=== PATIENT | female | born 1990 | race Caucasian/White ===

== ENCOUNTER → 2017-02-05 | Outpatient (CLI) | payer OTHER ==
[~2017-02-05] MED LIST: PRENTAB26 PO
[2017-02-05 10:02] LABS: CHOLESTEROL/HDL RATIO 3.4
== END | disposition home or self-care (01) ==
LOC: C.LAB 08:14
PROVIDERS: ATTEND Physician Assistant
DX: Z00.00 Encounter for general adult medical examination without abnormal findings (principal)

== ENCOUNTER → 2017-10-23 | Outpatient (CLI) | payer OTHER | END | disposition home or self-care (01) | LOC: C.PAPS 09:15 | PROVIDERS: ATTEND Obstetrics & Gynecology | DX: Z01.419 Encounter for gynecological examination (general) (routine) without abnormal findings (principal) ==

== ENCOUNTER → 2018-01-25 | Outpatient (CLI) | payer OTHER | END | disposition home or self-care (01) | LOC: C.LAB1850 08:10 | PROVIDERS: ATTEND Physician Assistant | DX: Z00.00 Encounter for general adult medical examination without abnormal findings (principal) ==

== ENCOUNTER 2020-09-10 23:40 | Inpatient (IN) ==
[2020-09-11] MEDS ORDERED: OXYTOCIN 30 UNITS/500 ML BAG IV PRN ×4 (00:36→08:49)
--- NOTE | 2020-09-11 00:44 | History & Physical Report ---
Date of Service September 11, 2020 Assessment & Plan (1) Spontaneous rupture of amniotic membranes: IUP at 39 weeks with gross rupture of amniotic fluid with mild contractions since then. will begin pitocin augmentation of labor epidural analgesia when requested anticipate vaginal . History of Present Illness Primary Care Provider: Bety Loera MD Patient is a 29 yo white female EDC 09/17/20 who presents at 39 weeks with SPROM for clear fluid at 2130. she has been having contractions intermittently for several days. they are a little stronger now since leaking fluid. has been complicated by GDM - diet controlled. GBS - negative, blood type - A positive. Allergies Allergy/AdvReac Type Severity Reaction Status Date / Time No Known Allergies Allergy Verified 09/11/20 00:06 Home Medications Medication Instructions Recorded Confirmed Type prenat.vits,rocio,[id number] 1 tab PO DAILY 01/30/20 09/11/20 History acetone (urine) test #50 ea 04/23/20 09/11/20 Rx blood sugar diagnostic #150 ea 04/23/20 09/11/20 Rx blood-glucose meter #1 ea 04/23/20 09/11/20 Rx lancets 33 gauge #150 ea 04/23/20 09/11/20 Rx pantoprazole 40 mg tablet,delayed 40 mg PO DAILY #90 tab 08/16/20 09/11/20 Rx release Patient History Medical History Abnormal biochemical finding on screening of mother Chicken pox Dysuria Encounter for anatomic survey Gestational diabetes Surgical History S/P wisdom tooth extraction Family History Father Hypertension Mother Dyslipidemia Multiple myeloma, Onset Age: 59 Daughter No problems noted. Denies family history of Ovarian cancer Osteoporosis Myocardial infarction Breast cancer Colorectal cancer Social History Smoking Status: Never smoker Hx Alcohol Use: No Hx Substance Use: No Preferred Language: [place] Communication Ability: Effective Visual Impairment: No Limitations Hearing Ability: Normal Beliefs That Will Affect Care: None marital status: marital status details: Nilton (29) [phone] Current Living Situation: Family Current Living Situation Comment: lives with spouse, and child, 1 dog, 2 cats, spouse to change litter current occupational status: employed current occupation: [employer] Feels Safe at Home: Yes Childhood Exposure to Second-Hand Smoke: No Dental Care, Regularly: Yes Physical Activity Frequency: 3-4 Times per Week Seatbelt Use: always Sunscreen Use: Yes Review of Systems All systems reviewed & are unremarkable except as noted in HPI & below Physical Exam Constitutional: WD/WN, vitals as above Respiratory: normal respiratory effort, lungs clear to auscultation Cardiovascular: RRR, no murmur, no edema Gastrointestinal (Abdomen): normal bowel sounds, soft, nontender, no hepatosplenomegaly Psychiatric: A+Ox3, euthymic affect Genitourinary: OB Exam Abdomen: + vertex, + estimated weight (8-9 pounds) and + irregular contractions Manual OB Exam: + cervical dilation 1 cm, + cervical effacement 60%, + station -1 and + amniotic fluid clear and nitrazine positive OB Exam Monitor Tracing: + external FHT monitor used, + external uterine monitor used, + category I and + normal FHT variability Results & Data ([facility]) Vital Signs (Past 12 Hours) Vital Signs Temp Pulse Resp BP 09/11/20 00:10 97.9 F 96 H 16 128/77 09/10/20 23:56 96 H 128/77 Coding Level of Care Code None Diagnoses Spontaneous rupture of amniotic membranes
[2020-09-11 00:57] LABS: Hematocrit (blood only) 37.5 % (37-47); Hemoglobin 12.8 g/dL (12.0-16.0); Mean Corpuscular Hemoglobin 30.5 pg (25-34); Mean Corpuscular Hgb Conc 34.1 g/dL (32-36); Mean Corpuscular Volume 89.5 fL (80-100); Mean Platelet Volume 10.2 fL (7.4-10.4); Platelet Count 220 K/uL (130-400); RDW Coefficient of Variation 13.6 % (11.5-14.5); Red Blood Count 4.19 M/uL (4.2-5.4); White Blood Count 12.07 K/uL (4.8-10.8)
[2020-09-11] MEDS: LACTATED RINGER'S 1,000 ML IV PRN ×2 (01:15→05:15)
[2020-09-11] MEDS ORDERED: ePHEDrine sulfate 50 MG/ML AMP ONE (05:10)
[2020-09-11] MEDS ORDERED: BUPIVACAINE 0.25% 30 ML VIAL ONE (05:10)
[2020-09-11] MEDS ORDERED: SODIUM CHLORIDE 0.9% INJ 10 ML VIAL ONE (05:10)
[2020-09-11] MEDS ORDERED: fentaNYL citrate 100 MCG/2 ML VIAL ONE (05:10)
[2020-09-11] MEDS ORDERED: fentaNYL 2MCG/ML ROPIVACAINE 1.25MG/ML 100 ML BAG EPI ONE (05:11)
[2020-09-11] MEDS ORDERED: NALOXONE HCL 0.4 MG/1 ML VIAL/CARP IV PRN (05:17)
[2020-09-11] MEDS ORDERED: diphenhydrAMINE 50 MG/ML VIAL IV PRN (05:17)
[2020-09-11] MEDS ORDERED: NALOXONE HCL 1 MG in SODIUM CHLORIDE 0.9% 1000ML 1,000 ML IV PRN (05:17)
[2020-09-11] MEDS ORDERED: fentaNYL 2MCG/ML ROPIVACAINE 1.25MG/ML 100 ML BAG EPI PRN (05:17)
[2020-09-11] MEDS ORDERED: ePHEDrine sulfate 50 MG/ML AMP IV PRN (05:17)
[2020-09-11] MEDS ORDERED: ONDANSETRON INJ 2 MG/ML 2 ML VIAL IV PRN (05:17)
--- NOTE | 2020-09-11 05:19 | Anesthesiology Consultation ---
Date of Service September 11, 2020 Assessment & Plan (1) Encounter for pre-operative examination: Chart Review Chart Review: Patient NOT seen in Pre Admission Testing and Acceptable Risk for Labor Epidural Consults Requested none History Height/Weight Weight: 80.385 kg Allergies Allergy/AdvReac Type Severity Reaction Status Date / Time No Known Allergies Allergy Verified 09/11/20 00:06 Medications Home Medications Medication Instructions Recorded Confirmed Last Taken prenat.vits,rocio,zrf-[id number] 1 tab PO DAILY 01/30/20 09/11/20 09/09/20 21:00 acetone (urine) test #50 ea 04/23/20 09/11/20 Unknown blood sugar diagnostic #150 ea 04/23/20 09/11/20 Unknown blood-glucose meter #1 ea 04/23/20 09/11/20 Unknown lancets 33 gauge #150 ea 04/23/20 09/11/20 Unknown pantoprazole 40 mg tablet,delayed 40 mg PO DAILY #90 tab 08/16/20 09/11/20 09/10/20 08:00 release Active Medications Generic Name Dose Route Start Last Admin Trade Name Freq PRN Reason Stop Dose Admin Oxytocin 30 units in 500 mls @ 7 mls/hr 09/11/20 00:38 09/11/20 05:00 Pitocin IV 09/13/20 00:37 0.42 units/hr .Q24H PRN 7 mls/hr Labor Induction/Augmentation Titration Protocol 0.42 UNITS/HR Lactated Ringer's 1,000 mls @ 125 mls/hr 09/11/20 00:36 09/11/20 05:15 Lr IV 09/13/20 00:35 125 mls/hr .Q8H PRN Administration L&D Protocol Protocol Past Medical History Medical History Abnormal biochemical finding on screening of mother Chicken pox Dysuria Encounter for anatomic survey Gestational diabetes Exercise / Class Metabolic Activity II 4-5 Yardwork/Stairs/Walk up hill Past Family History Family History Father Hypertension Mother Dyslipidemia Multiple myeloma, Onset Age: 59 Daughter No problems noted. Denies family history of Ovarian cancer Osteoporosis Myocardial infarction Breast cancer Colorectal cancer Past Surgical History Surgical History S/P wisdom tooth extraction Past Anesthesia History No Hx of Anesthesia Complications and No Family Hx of Anesthesia Complications History of PONV No Hx of PONV and No Hx of Motion Sickness Social History Smoking Status: Never smoker Do You Dip or Chew Tobacco: No Hx Alcohol Use: No Hx Substance Use: No substance use type: does not use Physical Exam Vital Signs Last Vital Signs Temp 36.6 C 09/11/20 04:51 Pulse 86 09/11/20 05:32 Resp 18 09/11/20 04:51 BP 125/81 09/11/20 05:31 Pulse Ox 94 09/11/20 05:32 Testing Laboratory Results 09/11/20 00:47 09/11/20 00:46 POC Glucose 95
[2020-09-11] MEDS ORDERED: oxyCODONE/ACETAMINOPHEN 5mg/325mg TAB PO PRN (08:49)
[2020-09-11] MEDS ORDERED: ACETAMINOPHEN 325 MG TAB PO PRN (08:49)
[2020-09-11] MEDS ORDERED: SUPERCREAM 0.870% 15 GM JAR EXT PRN (08:49)
[2020-09-11] MEDS ORDERED: bisacodyL 10 MG SUPP PR PRN (08:49)
[2020-09-11] MEDS ORDERED: BENZOCAINE 20% AER SPR 82.5 GM CAN EXT PRN (08:49)
[2020-09-11] MEDS ORDERED: HYDROCORTISONE ACETATE 25 MG SUPP PR PRN (08:49)
--- NOTE | 2020-09-11 08:56 | Delivery Summary ---
Vaginal Delivery Summary Date of Service September 11, 2020 Patient is a 29-year-old 3 para 1011 white female who presents with spontaneous rupture of membranes. She received Pitocin augmentation of labor because her contractions were irregular after 3 hours of observation. She received effective epidural analgesia. She progressed to full dilation, and pushed effectively through 1 contraction for delivery of a viable female infant. After the head was delivered the posterior arm was presented and was delivered next. The rest of the infant delivered easily and was placed on the mother's abdomen for further attention and drying. The infant was vigorous and moving all 4 limbs. The placenta was expressed intact with a three-vessel cord. A superficial laceration vaginally was not bleeding and therefore not repaired. Estimated blood loss was 200 cc. bleeding was controlled with dilute Pitocin. Mother and infant were doing well after delivery. Vaginal Delivery Summary [facility] Vaginal Delivery Charge Vaginal Delivery Codes: 01400 global code for the antepartum, delivery, and post- Delivery Type Details: [facility]
--- NOTE | 2020-09-11 09:38 | Anesthesiology Progress Note ---
Date of Service September 11, 2020 Anesthesia Post Procedure Vital Signs Vital Signs: Temp Pulse Resp BP Pulse Ox 09/11/20 09:28 97 H 118/63 09/11/20 09:13 97 H 114/58 L 09/11/20 09:12 102 H 93 09/11/20 09:07 86 94 09/11/20 09:02 91 H 93 09/11/20 08:58 93 H 119/60 09/11/20 08:57 91 H 93 09/11/20 08:52 100 H 93 09/11/20 08:48 104 H 93 09/11/20 08:47 101 H 95 09/11/20 08:43 99 H 126/77 09/11/20 08:42 102 H 94 09/11/20 08:37 108 H 94 09/11/20 08:35 110 H 94 09/11/20 08:32 117 H 98 09/11/20 08:29 104 H 130/82 09/11/20 08:27 105 H 96 09/11/20 08:22 105 H 94 09/11/20 08:17 100 H 94 09/11/20 08:15 98 H 94 09/11/20 08:14 90 115/74 09/11/20 08:12 96 H 94 09/11/20 08:09 93 H 94 09/11/20 08:07 97 H 94 09/11/20 08:04 95 H 94 09/11/20 08:02 93 H 93 09/11/20 08:00 93 H 115/77 09/11/20 07:57 90 94 09/11/20 07:56 93 H 94 09/11/20 07:52 89 94 09/11/20 07:49 90 94 09/11/20 07:47 84 95 09/11/20 07:43 88 112/68 94 09/11/20 07:42 84 95 09/11/20 07:37 86 95 09/11/20 07:32 98 H 95 09/11/20 07:28 83 119/75 09/11/20 07:27 91 H 94 09/11/20 07:22 83 94 09/11/20 07:19 89 94 09/11/20 07:17 92 H 95 09/11/20 07:14 36.7 C 94 H 18 121/78 09/11/20 07:12 86 96 09/11/20 07:10 86 94 09/11/20 07:07 95 H 97 09/11/20 07:04 98 H 94 09/11/20 07:02 95 H 96 09/11/20 06:59 85 126/76 09/11/20 06:57 92 H 94 09/11/20 06:53 97 H 94 09/11/20 06:52 88 95 09/11/20 06:48 95 H 94 09/11/20 06:47 96 H 95 09/11/20 06:44 85 119/76 09/11/20 06:42 86 95 09/11/20 06:37 83 93 09/11/20 06:36 88 94 09/11/20 06:32 95 H 94 09/11/20 06:30 89 94 09/11/20 06:29 85 122/77 09/11/20 06:27 97 H 94 09/11/20 06:25 91 H 94 09/11/20 06:22 96 H 95 09/11/20 06:19 89 94 09/11/20 06:17 88 96 09/11/20 06:14 88 93 09/11/20 06:13 82 112/66 09/11/20 06:12 84 94 09/11/20 06:10 36.6 C 18 09/11/20 06:07 89 103/69 95 09/11/20 06:03 83 106/59 L 09/11/20 06:02 86 93 09/11/20 06:01 84 94 09/11/20 05:57 81 107/63 93 09/11/20 05:55 81 94 09/11/20 05:52 96 H 110/75 92 09/11/20 05:48 91 H 120/82 09/11/20 05:47 87 121/83 94 09/11/20 05:42 93 H 118/74 92 09/11/20 05:38 93 H 122/76 09/11/20 05:37 93 H 92 09/11/20 05:34 92 H 94 09/11/20 05:32 86 94 09/11/20 05:31 84 125/81 09/11/20 05:29 89 94 09/11/20 05:27 88 93 09/11/20 05:22 91 H 93 09/11/20 04:51 36.6 C 86 18 116/75 09/11/20 03:31 81 124/62 09/11/20 03:30 36.7 C 16 09/11/20 02:06 87 109/70 09/11/20 02:00 36.7 C 18 09/11/20 00:10 36.6 C 96 H 16 128/77 09/10/20 23:56 96 H 128/77 Pain Intensity Lower Abdomen: Pain Intensity: 0 Transfer of Care Handoff Completed per policy Notes Mental Status: alert / awake / arousable and participated in evaluation Patient Amnestic to Procedure: Yes Nausea / Vomiting: adequately controlled Pain: adequately controlled Airway Patency, RR, SpO2: stable & adequate BP & HR: stable & adequate Hydration State: stable & adequate Anesthetic Complications: no major complications apparent and Pt Satisfied with anesthetic care
[2020-09-11] MEDS: PANTOprazole 40 MG TAB PO SCH (13:01)
[2020-09-11] MEDS: IBUPROFEN 600 MG TAB PO PRN ×2 (18:57→22:59)
[2020-09-11] MEDS: DOCUSATE SODIUM 100 MG CAP PO SCH (20:52)
[2020-09-12] MEDS: IBUPROFEN 600 MG TAB PO PRN ×2 (05:27→10:35)
[2020-09-12 07:01] LABS: Hematocrit (blood only) 37.6 % (37-47); Mean Corpuscular Hgb Conc 34.6 g/dL (32-36); Mean Corpuscular Volume 89.7 fL (80-100); Mean Platelet Volume 10.2 fL (7.4-10.4); Platelet Count 209 K/uL (130-400); RDW Coefficient of Variation 13.8 % (11.5-14.5); RDW Standard Deviation 45.1 fL (36.4-46.3); Red Blood Count 4.19 M/uL (4.2-5.4); White Blood Count 13.92 K/uL (4.8-10.8)
[2020-09-12] MEDS ORDERED: PRENATAL VITAMIN 1 TAB PO SCH (08:00)
[2020-09-12] MEDS ORDERED: DIPHTHERIA/TETANUS/PERTUSSIS 0.5 ML SYR/VIAL IM ONE (09:00)
--- NOTE | 2020-09-12 09:18 | Obstetrical Progress Note ---
Date of Service September 12, 2020 Assessment & Plan (1) Encounter for supervision of normal in multigravida, antepartum: PPD#1 doing well, would like to go home. instructions reviewed. Followup PP 6w. Subjective Ambulation: ambulating normally Voiding: no voiding problems Diet Tolerance:: regular diet Lochia:: Moderate Feeding Type:: breast feeding PPD#1 doing well. Desires discharge home. Review of Systems All systems reviewed & are unremarkable except as noted in HPI & below Physical Exam Constitutional WD/WN, vitals as above no acute distress Respiratory normal respiratory effort Cardiovascular Rate/Rhythm: regular rate and regular rhythm Gastrointestinal (Abdomen) Inspection/Auscultation: abdomen normal to inspection; abdomen not distended Percussion/Palpation: abdomen soft Genitourinary OB Exam Abdomen: + fundal height Fundus: + firm; not tender Results & Data ([facility]) Vital Signs (Past 12 Hours) Vital Signs Temp Pulse Resp BP 09/12/20 07:34 36.5 C 84 20 106/74 09/12/20 03:00 36.5 C 74 16 106/72 09/11/20 23:00 36.5 C 81 16 103/72
[2020-09-12] MEDS: PANTOprazole 40 MG TAB PO SCH (10:35)
[2020-09-12] MEDS: DOCUSATE SODIUM 100 MG CAP PO SCH (10:36)
[2020-09-12] MEDS ORDERED: bisacodyL 5 MG TABEC PO SCH (20:00)
== END 2020-09-12 15:05 | disposition home or self-care (01) | DRG 807 ==
LOC: OPB 23:40 → 4S1 23:42 → 4S2 09-11 14:12

== ENCOUNTER 2022-08-18 01:26 | Inpatient (IN) ==
--- NOTE | 2022-08-18 02:17 | Emergency Department Note ---
Impression & Plan Suicide attempt by hanging, Hypokalemia, UTI (urinary tract infection) The case was signed out to Dr. Schmitt for disposition ED Provider Note NAME: MARIANGEL ORTIZ AGE: 31 SEX: F ARRIVES VIA: Walk-In INFORMANT: Patient and friend ED PROVIDER(S): Megan Granados DO CHIEF COMPLAINT: Suicide attempt PLAN: Disposition: The case will be signed out at change of shift Condition: Good MEDICAL DECISION MAKING: This is a 31-year-old female patient who presents to the emergency department after a suicide attempt. Patient made an attempt at her life 5 days ago by hanging. She disclosed this information to a friend torey who brought her here for evaluation. The patient was medically cleared here in the emergency department. She is willing to admit herself voluntarily for inpatient psychiatric care. Patient was noted to have a slightly low potassium which was replaced with oral potassium chloride. She was also noted to have a urinary tract infection on urinalysis. The patient does admit to frequent urination. Triage Nursing notes reviewed and agree with them. Additional history obtained from the patient's friend who is at the bedside Vital Signs: reviewed and unremarkable Differential diagnosis: Mood disorder, thought disorder, drug abuse, attempted suicide, neck injury ER treatment provided: Oral potassium chloride Oral Macrobid Diagnostics interpreted by me: Laboratory studies: See below HPI: 31/F arrives for evaluation of suicide attempt. The patient presents to the emergency department with her friend this evening stating that she has t houghts of suicide and attempted to hang herself 5 days ago in a hotel. The patient is going through divorce and feels extremely depressed. She had an increased dose to her sertraline and recently started taking Adderall. She used a chairman of the board cord to try to hang herself while staying in a hotel 5 days ago. She disclosed this to her friend torey. PAST MEDICAL HISTORY:GERD; depression PAST SURGICAL HISTORY:See Below FAMILY HISTORY:Bipolar disorder SOCIAL HISTORY:She works at the [employer]; she has 2 children and is going through a divorce at this time. She denies drug or alcohol use. HOME MEDICATIONS:See list ALLERGIES:None VITALS:See Below PHYSICAL EXAMINATION: HEENT: Head - normocephalic and atraumatic. Pupils are equal, round, and reactive to light. Extraocular eye muscles are intact, and sclera are anicteric. Nose - moist nasal mucosa without discharge. Mouth - moist buccal mucosa. Oropharynx is nonerythematous and there is no tonsillar exudate or edema noted. Neck: Supple; the patient has old bruising in a linear pattern on both sides of her neck Heart: Regular rate and rhythm. There is a normal S1 and S2 with no murmurs, c licks, or gallops appreciated. Lungs: Clear to auscultation bilaterally with no wheezes, rales, or rhonchi. Abdomen: Soft, completely nontender, nondistended, with good bowel sounds. There are no palpable pulsatile masses or hepatosplenomegaly. There is no guarding, rigidity, or rebound noted. Extremities: No evidence of cyanosis, clubbing, or edema. There are easily palpable peripheral pulses. Skin: warm and dry with good turgor and no rashes. Psych: The patient has a normal affect. She does appear slightly depressed. She admits to thoughts of suicide and a recent attempt by hanging ED COURSE: Times/Reassessments: 155: The patient was evaluated in room A-8. A complete history and physical was performed. Laboratory studies were drawn as above. The patient was evaluated by the ED psychiatric manager of case management. Patient was given an oral dose of potassium chloride for her hypokalemia. She was given an oral dose of Macrobid for signs of urinary tract infection on urinalysis. Referral has been made to 3 S. We are awaiting bed placement. The case has been signed out to Dr. Schmitt at change of shift. Megan Granados DO Past Med/Surg History Medical History (Updated 08/18/22 @ 07:53 by Megan Granados DO) Abnormal biochemical finding on screening of mother ADHD (attention deficit hyperactivity disorder), inattentive type Chicken pox Diet controlled gestational diabetes mellitus (GDM), antepartum Surgical History S/P wisdom tooth extraction Family History Father Hypertension Guillain-Jackson Mother Dyslipidemia Multiple myeloma, Onset Age: 59 Daughter No problems noted. Daughter Hip dysplasia Denies family history of Ovarian cancer Osteoporosis Myocardial infarction Breast cancer Colorectal cancer Social History (Updated 05/24/22 @ 18:27 by GREG Morris) Smoking Status: Never smoker Second Hand Exposure: No; Hx Alcohol Use: No Hx Substance Use: No Preferred Language: [place] Communication Ability: Effective Visual Impairment: No Limitations Hearing Ability: Normal Certified Scrub Tech Required: No Beliefs That Will Affect Care: None marital status: marital status details: Nilton (30) [phone] Current Living Situation: Family Current Living Situation Comment: lives with spouse, and child, 1 dog, 2 cats, spouse to change litter current occupational status: employed current occupation: [employer] How many Children do You have: 2 Feels Safe at Home: Yes Childhood Exposure to Second-Hand Smoke: No Diet Comment: regular caffeine: Yes during the past year weight has: remained stable Dental Care, Regularly: Yes Physical Activity Frequency: 3-4 Times per Week Seatbelt Use: always Sunscreen Use: Yes Gender Identity: Female Assistive Devices: Contacts and Glasses Allergies Allergies Allergy/AdvReac Type Severity Reaction Status Date / Time No Known Allergies Allergy Verified 06/21/22 12:41 Home Meds Home Medications Medication Instructions Recorded Confirmed ondansetron 4 mg disintegrating 4 mg PO Q8H PRN NAUSEA/VOMITING 10/12/21 08/18/22 tablet Previous Rx's Medication Instructions Recorded pantoprazole 40 mg tablet,delayed 40 mg PO DAILY #90 tabs 05/26/22 release sertraline 100 mg tablet 100 mg PO DAILY #90 tabs 07/26/22 dextroamphetamine-amphetamine ER 30 mg PO DAILY #30 caps 08/16/22 30 mg 24hr capsule,extend release (Adderall XR) Results & Data (ED) Vital Signs Vital Signs - 24 hr 08/18/22 01:28 08/18/22 01:59 08/18/22 07:27 Temperature 36.3 C L 36.9 C Temperature Source Temporal Artery Scan Oral Pulse Rate 94 H Pulse Rate [Right Finger] 103 H Respiratory Rate 18 18 Respiratory Effort / Characteristics Non-Labored Spontaneous Non-Labored Respiratory Depth Normal Normal Normal Blood Pressure 121/72 Blood Pressure [Right Arm] 124/78 Blood Pressure Mean 88 Blood Pressure Mean [Right Arm] 93 Blood Pressure Position [Right Arm] Sitting Pulse Oximetry 100 98 Oxygen Delivery Method Room Air Room Air Sepsis Recent Fever Within 48 Hours No Sepsis New/Unexplained Change in Mental Status No Sepsis Action Taken by Nursing No Action Required Laboratory Data 08/18/22 01:35 08/18/22 01:35 Lab Results 08/18/22 08/18/22 08/18/22 Range/Units 01:35 01:35 01:35 WBC 10.62 (4.8-10.8) K/ul RBC 5.20 (4.20-5.40) M/uL Hgb 15.6 (12.0-16.0) g/dl Hct 46.2 (37.0-47.0) % MCV 88.8 (80.0-100.0) fL MCH 30.0 (25.0-34.0) pg MCHC 33.8 (32.0-36.0) g/dL RDW Std Deviation 39.1 (36.4-46.3) fL RDW Coeff of Bogdan 12.1 (11.5-14.5) % Plt Count 369 (130-400) K/uL MPV 9.7 (9.4-12.4) fL Immature Gran % (Auto) 0.3 % Neut % (Auto) 50.9 % Lymph % (Auto) 40.2 % Martin % (Auto) 6.2 % Eos % (Auto) 2.1 % Baso % (Auto) 0.3 % Neut # (Auto) 5.41 (1.40-6.50) K/uL Lymph # (Auto) 4.27 H (1.2-3.4) K/uL Martin # (Auto) 0.66 H (0.11-0.59) K/uL Eos # (Auto) 0.22 (0-0.50) K/uL Baso # (Auto) 0.03 (0-0.2) K/uL Immature Gran # (Auto) 0.03 (0.01-0.20) K/uL Sodium 140 (136-145) mmol/L Potassium 3.2 L (3.5-5.1) mmol/L Chloride 103 (98-107) mmol/L Carbon Dioxide 30 (21-32) mmol/L Anion Gap 7 (3-11) BUN 10 (6-23) mg/dl Creatinine 0.66 (0.6-1.2) mg/dl Est Cr Clr Drug Dosing 103.1 ml/min Est GFR ( Amer) 137.4 ml/min Est GFR (Non-Af Amer) 118.5 ml/min BUN/Creatinine Ratio 15.2 (10-20) Glucose 75 (70-99(Fasting)) mg/dl Calcium 9.8 (8.5-10.1) mg/dl Total Bilirubin 0.8 (0.2-1.0) mg/dl AST 17 (13-39) U/L ALT 14 (7-52) U/L Alkaline Phosphatase 68 (34-104) U/L Total Protein 8.1 (6.0-8.3) gm/dl Albumin 5.0 (3.4-5.0) gm/dl Globulin 3.1 (2.5-4.0) gm/dl Albumin/Globulin Ratio 1.6 (0.9-2) TSH (0.300-4.500) uIu/ml Urine Color Urine Appearance (Clear) Urine pH (4.5-7.5) Ur Specific Brackney (1.000-1.030) Urine Protein (Negative) Urine Glucose (UA) (Negative) Urine Ketones (Negative) Urine Blood (Negative) Urine Nitrite (Negative) Urine Bilirubin (Negative) Urine Urobilinogen (Negative) Ur Leukocyte Esterase (Negative) Urine WBC (Auto) (0-5) /hpf Urine RBC (Auto) (0-4) /hpf U Hyaline Cast (Auto) (0-5) /lpf U Epithel Cells (Auto) (0-5) /lpf Urine Bacteria (Auto) (Negative) POC Ur Test NEG (NEG) Salicylates (3.0-30) mg/dl Urine Opiates Screen (Neg) Ur Methadone, Qual (Neg) Acetaminophen (10-30) ug/ml Urine Barbiturates (Neg) Ur Phencyclidine (PCP) (Neg) U Amphetamin/Meth Scrn (Neg) MDMA (Ecstasy) Screen (Neg) U Benzodiazepines Scrn (Neg) Ur Cocaine Metabolite (Neg) U Marijuana (THC) Screen (Neg) Ethyl Alcohol mg/dL (<10.0) mg/dl SARS-CoV-2, RNA, NAAT (NEGATIVE) 08/18/22 08/18/22 08/18/22 Range/Units 01:35 01:35 01:35 WBC (4.8-10.8) K/ul RBC (4.20-5.40) M/uL Hgb (12.0-16.0) g/dl Hct (37.0-47.0) % MCV (80.0-100.0) fL MCH (25.0-34.0) pg MCHC (32.0-36.0) g/dL RDW Std Deviation (36.4-46.3) fL RDW Coeff of Bogdan (11.5-14.5) % Plt Count (130-400) K/uL MPV (9.4-12.4) fL Immature Gran % (Auto) % Neut % (Auto) % Lymph % (Auto) % Martin % (Auto) % Eos % (Auto) % Baso % (Auto) % Neut # (Auto) (1.40-6.50) K/uL Lymph # (Auto) (1.2-3.4) K/uL Martin # (Auto) (0.11-0.59) K/uL Eos # (Auto) (0-0.50) K/uL Baso # (Auto) (0-0.2) K/uL Immature Gran # (Auto) (0.01-0.20) K/uL Sodium (136-145) mmol/L Potassium (3.5-5.1) mmol/L Chloride (98-107) mmol/L Carbon Dioxide (21-32) mmol/L Anion Gap (3-11) BUN (6-23) mg/dl Creatinine (0.6-1.2) mg/dl Est Cr Clr Drug Dosing ml/min Est GFR ( Amer) ml/min Est GFR (Non-Af Amer) ml/min BUN/Creatinine Ratio (10-20) Glucose (70-99(Fasting)) mg/dl Calcium (8.5-10.1) mg/dl Total Bilirubin (0.2-1.0) mg/dl AST (13-39) U/L ALT (7-52) U/L Alkaline Phosphatase (34-104) U/L Total Protein (6.0-8.3) gm/dl Albumin (3.4-5.0) gm/dl Globulin (2.5-4.0) gm/dl Albumin/Globulin Ratio (0.9-2) TSH 1.680 (0.300-4.500) uIu/ml Urine Color Urine Appearance (Clear) Urine pH (4.5-7.5) Ur Specific Brackney (1.000-1.030) Urine Protein (Negative) Urine Glucose (UA) (Negative) Urine Ketones (Negative) Urine Blood (Negative) Urine Nitrite (Negative) Urine Bilirubin (Negative) Urine Urobilinogen (Negative) Ur Leukocyte Esterase (Negative) Urine WBC (Auto) (0-5) /hpf Urine RBC (Auto) (0-4) /hpf U Hyaline Cast (Auto) (0-5) /lpf U Epithel Cells (Auto) (0-5) /lpf Urine Bacteria (Auto) (Negative) POC Ur Test (NEG) Salicylates < 3.0 L (3.0-30) mg/dl Urine Opiates Screen (Neg) Ur Methadone, Qual (Neg) Acetaminophen < 3 L (10-30) ug/ml Urine Barbiturates (Neg) Ur Phencyclidine (PCP) (Neg) U Amphetamin/Meth Scrn (Neg) MDMA (Ecstasy) Screen (Neg) U Benzodiazepines Scrn (Neg) Ur Cocaine Metabolite (Neg) U Marijuana (THC) Screen (Neg) Ethyl Alcohol mg/dL < 10.0 (<10.0) mg/dl SARS-CoV-2, RNA, NAAT (NEGATIVE) 08/18/22 08/18/22 08/18/22 Range/Units 01:35 01:35 01:35 WBC (4.8-10.8) K/ul RBC (4.20-5.40) M/uL Hgb (12.0-16.0) g/dl Hct (37.0-47.0) % MCV (80.0-100.0) fL MCH (25.0-34.0) pg MCHC (32.0-36.0) g/dL RDW Std Deviation (36.4-46.3) fL RDW Coeff of Bogdan (11.5-14.5) % Plt Count (130-400) K/uL MPV (9.4-12.4) fL Immature Gran % (Auto) % Neut % (Auto) % Lymph % (Auto) % Martin % (Auto) % Eos % (Auto) % Baso % (Auto) % Neut # (Auto) (1.40-6.50) K/uL Lymph # (Auto) (1.2-3.4) K/uL Martin # (Auto) (0.11-0.59) K/uL Eos # (Auto) (0-0.50) K/uL Baso # (Auto) (0-0.2) K/uL Immature Gran # (Auto) (0.01-0.20) K/uL Sodium (136-145) mmol/L Potassium (3.5-5.1) mmol/L Chloride (98-107) mmol/L Carbon Dioxide (21-32) mmol/L Anion Gap (3-11) BUN (6-23) mg/dl Creatinine (0.6-1.2) mg/dl Est Cr Clr Drug Dosing ml/min Est GFR ( Amer) ml/min Est GFR (Non-Af Amer) ml/min BUN/Creatinine Ratio (10-20) Glucose (70-99(Fasting)) mg/dl Calcium (8.5-10.1) mg/dl Total Bilirubin (0.2-1.0) mg/dl AST (13-39) U/L ALT (7-52) U/L Alkaline Phosphatase (34-104) U/L Total Protein (6.0-8.3) gm/dl Albumin (3.4-5.0) gm/dl Globulin (2.5-4.0) gm/dl Albumin/Globulin Ratio (0.9-2) TSH (0.300-4.500) uIu/ml Urine Color Yellow Urine Appearance Cloudy A (Clear) Urine pH 5.5 (4.5-7.5) Ur Specific Brackney 1.022 (1.000-1.030) Urine Protein Negative (Negative) Urine Glucose (UA) Negative (Negative) Urine Ketones Negative (Negative) Urine Blood 2+ H (Negative) Urine Nitrite Negative (Negative) Urine Bilirubin Negative (Negative) Urine Urobilinogen Negative (Negative) Ur Leukocyte Esterase 1+ H (Negative) Urine WBC (Auto) 5-10 H (0-5) /hpf Urine RBC (Auto) 0-4 (0-4) /hpf U Hyaline Cast (Auto) 1-5 (0-5) /lpf U Epithel Cells (Auto) >30 H (0-5) /lpf Urine Bacteria (Auto) 3+ H (Negative) POC Ur Test (NEG) Salicylates (3.0-30) mg/dl Urine Opiates Screen Neg (Neg) Ur Methadone, Qual Neg (Neg) Acetaminophen (10-30) ug/ml Urine Barbiturates Neg (Neg) Ur Phencyclidine (PCP) Neg (Neg) U Amphetamin/Meth Scrn Pos H (Neg) MDMA (Ecstasy) Screen Neg (Neg) U Benzodiazepines Scrn Neg (Neg) Ur Cocaine Metabolite Neg (Neg) U Marijuana (THC) Screen Neg (Neg) Ethyl Alcohol mg/dL (<10.0) mg/dl SARS-CoV-2, RNA, NAAT NEGATIVE (NEGATIVE) Administered Medications Discontinued Medications Nitrofurantoin Macrocrystals (Nitrofurantoin Monohydrate 100 Mg Cap) 100 mg PO NOW STA Stop: 08/18/22 03:23 Last Admin: 08/18/22 03:28 Dose: 100 mg Documented By: BERNARDO Potassium Chloride (Potassium Chloride Crtab 20 Meq Tabcr) 40 meq PO NOW STA Stop: 08/18/22 03:19 Last Admin: 08/18/22 03:28 Dose: 40 meq Documented By: BERNARDO Discharge Plan Visit Data Chief Complaint: Mental Health Evaluation Stated Complaint: SI,DEPRESSION ED Provider: Markus Schmitt Discharge Problem: Suicide attempt by hanging, Hypokalemia, UTI (urinary tract infection) Forms Stand Alone Forms: [facility], Suicide Prevention Resources Prescriptions Prescriptions: No Action pantoprazole 40 mg tablet,delayed release (DR/EC) 40 mg PO DAILY Qty: 90 1RF Rx Instructions: take 1 tablet by mouth sertraline 100 mg tablet 100 mg PO DAILY Qty: 90 1RF dextroamphetamine-amphetamine [Adderall XR] 30 mg capsule,extended release 24hr 30 mg PO DAILY Qty: 30 0RF ondansetron 4 mg tablet,disintegrating 4 mg PO Q8H PRN (Reason: NAUSEA/VOMITING) Referrals Referrals: Bety Loera MD [Primary Care Provider] -
[2022-08-18 02:19] LABS: Basophils # (auto) 0.03 K/uL (0-0.2); Basophils % (auto) 0.3 %; Eosinophils # (auto) 0.22 K/uL (0-0.50); Eosinophils % (auto) 2.1 %; Hematocrit (blood only) 46.2 % (37.0-47.0); Hemoglobin 15.6 g/dl (12.0-16.0); Immature Granulocytes # (auto) 0.03 K/uL (0.01-0.20); Immature Granulocytes % (auto) 0.3 %; Lymphocytes # (auto) 4.27 K/uL (1.2-3.4); Lymphocytes % (auto) 40.2 %; Mean Corpuscular Hgb Conc 33.8 g/dL (32.0-36.0); Mean Corpuscular Volume 88.8 fL (80.0-100.0); Mean Platelet Volume 9.7 fL (9.4-12.4); Monocytes # (auto) 0.66 K/uL (0.11-0.59); Monocytes % (auto) 6.2 %; Neutrophils # (auto) 5.41 K/uL (1.40-6.50); Neutrophils % (auto) 50.9 %; Platelet Count 369 K/uL (130-400); RDW Coefficient of Variation 12.1 % (11.5-14.5); RDW Standard Deviation 39.1 fL (36.4-46.3); White Blood Count 10.62 K/ul (4.8-10.8)
[2022-08-18 02:25] LABS: Appearance Urine Cloudy (Clear); Bacteria Urine Automated 3+ (Negative); Bilirubin Urine Negative (Negative); Blood Urine 2+ (Negative); Color Urine Yellow; Epithelial Cell Urine Auto >30 /lpf (0-5); Glucose Urine UA Negative (Negative); Ketones Urine Negative (Negative); Leukocyte Esterase Urine 1+ (Negative); Nitrite Urine Negative (Negative); Protein Urine Negative (Negative); Specific Gravity Urine 1.022 (1.000-1.030); Urobilinogen Urine Negative (Negative); pH Urine 5.5 (4.5-7.5)
[2022-08-18 02:32] LABS: Albumin Globulin Ratio 1.6 (0.9-2); BUN Creatinine Ratio 15.2 (10-20); Bilirubin,Total 0.8 mg/dl (0.2-1.0); Calcium 9.8 mg/dl (8.5-10.1); Creatinine Clr Calc Pharmacy 103.1 ml/min; Est GFR (African American) 137.4 ml/min; Est GFR (Non-African American) 118.5 ml/min; Globulin 3.1 gm/dl (2.5-4.0); Potassium 3.2 mmol/L (3.5-5.1); Total Protein 8.1 gm/dl (6.0-8.3)
[2022-08-18 02:41] LABS: Acetaminophen < 3 ug/ml (10-30); Salicylate < 3.0 mg/dl (3.0-30)
[2022-08-18 02:42] LABS: RBC Urine Automated 0-4 /hpf (0-4)
[2022-08-18 03:05] LABS: Amphetamines+Metham, Urine Pos (Neg); Barbiturates, Urine Neg (Neg); Benzodiazepine, Urine Neg (Neg); Cocaine, Urine Neg (Neg); MDMA (Ecstacy), Urine Neg (Neg); Methadone, Urine Neg (Neg); Opiate, Urine Neg (Neg); Phencyclidine, Urine Neg (Neg)
[2022-08-18] MEDS ORDERED: POTASSIUM CHLORIDE CRTAB 20 MEQ TABCR PO STA (03:18)
[2022-08-18] MEDS ORDERED: NITROFURANTOIN MONOHYDRATE 100 MG CAP PO STA (03:22)
--- NOTE | 2022-08-18 11:21 | Emergency Department Note ---
ED Visit Note Patient was signed out to me at change of shift by Dr. Granados, pending psychiatric evaluation and placement under 201 for suicidal thoughts and recent attempt. Patient was excepted for inpatient care at 3 [facility]. during my shift, she was transferred in stable condition. .
[2022-08-18] MEDS ORDERED: BISMUTH SUBSALICYLATE LIQD 236 ML PO PRN (12:04)
[2022-08-18] MEDS ORDERED: MAGNESIUM HYDROXIDE SUSP 30 ML UDC PO PRN (12:04)
[2022-08-18] MEDS ORDERED: ACETAMINOPHEN 325 MG TAB PO PRN (12:04)
[2022-08-18] MEDS ORDERED: ALUMINUM/MAGNESIUM SUSP 30 ML UDC PO PRN (12:04)
[2022-08-18] MEDS ORDERED: SODIUM CHLORIDE 0.65% NA SOLN 45 ML (OCEAN) PRN (12:04)
[2022-08-18] MEDS ORDERED: hydrOXYzine HCl 25 MG TAB PO PRN ×2 (12:04)
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
[2022-08-18] MEDS ORDERED: ONDANSETRON 4 MG OD TAB PO PRN (14:56)
[2022-08-18] MEDS: SERTRALINE HCL 50 MG TABLET PO SCH (15:18)
[2022-08-18] MEDS: PANTOprazole 40 MG TAB PO SCH (15:35)
[2022-08-19] MEDS: PANTOprazole 40 MG TAB PO SCH (09:24)
[2022-08-19] MEDS: SERTRALINE HCL 50 MG TABLET PO SCH (09:24)
--- NOTE | 2022-08-19 09:29 | Psychiatric Progress Note ---
Date of Service August 19, 2022 Impression / Recommendations Impression 31 year old woman with a history of ADHD, depression, anxiety who was admitted for impulsive interrupted suicide attempt and recent lack of sleep with mood changes. Diagnostically consistent with unspecified mood disorder with differential including BPAD type II recent hypomanic episode vs mixed episode vs complex trauma/PTSD vs stimulant/SSRI induced hypomania. She is deemed in need of psychiatric hospitalization for diagnostic clarification, safety and stabilization, medication management and development of further coping skills. Began to discuss medication treatment options including mood stabilizers but will hold off for now until further diagnostic clarification via screening tools. She consented to discontinuing Adderall for now and reducing sertraline dose. Reviewed side effects including but not limited to: GI, FAM, sexual side effects, and counseled on black box warning of potential for emergence of or increased SI and need to let staff know should this occur or should they feel unsafe. Also discussed importance of seeking emergency care following discharge if this side effect occurs in the future. 08/19/2022: Pt pleasant & cooperative. Spoke at some length of her history of periods of being "too up", during which she makes impulsive decisions she later regrets and overspends. These usually last no more than a couple of days but pt now says "this has been kind of building since May". She cites increasing inability to sleep and reduced need for sleep, racing thoughts, and impulsive decisions about sexual relationships that have caused serious marital problems. Reviewed medication options at some length. This included discussion of bupropion as replacement for sertraline. This medication is reputed to induce less mood cycling than other antidepressants yet is sufficiently stimulant-like to be of potential benefit for ADHD symptoms. We spoke at greater length of mood stabilizer options. She wishes to avoid antipsychotics if possible and to minimize the need for laboratory monitoring. Thus, the focus turned to lamotrigine. Reviewed the known risk of Martinez-Omid syndrome associated with rapid dose titration, including after stopping the medication for 2 weeks. (1) Bipolar I disorder, single manic episode, moderate: Present on Admission?: Yes (2) Suicide attempt: (3) ADHD (attention deficit hyperactivity disorder), inattentive type: Present on Admission?: Yes Plan 07/22/2022: * maintain off stimulants * start bupropion XL 150 mg daily * start lamotrigine 25 mg daily, increase to 50 mg daily in 2 weeks, then to 100 mg daily after 2 more weeks 08/18/2022: The patient was admitted to the [facility] ([facility] mental health unit) on q15 min checks (behavioral with suicide precautions) for safety. The patient will participate in group, recreational, and milieu therapies and will be offered additional individual and family sessions as clinically appropriate. -decrease sertraline to 50mg qd -hold Adderall XR -Mood Disorder Questionnaire -Acevedo BPD screen Inventory Assets Strengths: supportive relationships, willing to get treatment Needs: safety and stabilization, medication adjustment, additional coping skills, increased outpatient services Suicide Risk Level Suicide Risk Level: Moderate (q15 min suicide checks) (recent suicide attempt prior to admission and impulsivity but feels safe in the hospital, able to safety contract and agrees to let nursing/staff know should they develop plan, intent or feel unable to remain safe.) Suicide Risk Level Comments: Risk Factors Assessment Male: No Do You Have Access To A Gun?: No Health Problems: No Mental Health Diagnoses: Yes Substance Use Disorders: No Previous Attempt: Yes Family History of Suicide: No Previous Psychiatric Hospitalization: No Hopelessness: No Protective Factors Assessment Responsible for Young Children: Yes 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 Chief Complaint "I've been making bad decisions". Review of Systems Sleep Information Total Hours of Sleep: 8 Meal Information Percent Meal Consumed - Breakfast: 100 Percent Meal Consumed - Lunch: 100 Percent Meal Consumed - Dinner: 100 Subjective Subjective Patient was seen & assessed and interval progress reviewed with treatment team (nursing and social work ) Physical Exam Psychiatric Orientation: alert, oriented to person, oriented to place, oriented to time and cooperative Apperance: appropriately dressed and appropriately groomed Eye Contact: good eye contact Motor Behavior: no abnormal motor movements Speech: normal rate/rhythm/volume of speech Affect: + anxious affect and + tearful affect Mood: + depressed mood and + anxious mood Thought Process: goal directed thought process Thought Content: reality based without delusions Suicidal Thoughts: denies suicidal thoughts (but s/p recent attempt), denies suicidal plan and denies suicidal intent Homicidal Thoughts: denies homicidal thoughts Hallucinations: no auditory hallucinations and no visual hallucinations Cognition: recent memory grossly intact, remote memory grossly intact, attention grossly intact and language grossly intact Estimated Intelligence: consistent with education level Insight: + fair insight Judgment: + limited judgement Vital Signs (Past 24 Hours) Last Vital Signs Temp 36.9 C 08/19/22 06:39 Pulse 94 H 08/19/22 06:39 Resp 16 08/19/22 06:39 BP 109/76 08/19/22 06:39 Pulse Ox 97 08/18/22 12:15 O2 Del Method Room Air 08/18/22 12:15 Results & Data ([facility]) Current Inpatient Medications Current Inpatient Medications: Current Inpatient Medications Acetaminophen (Acetaminophen 325 Mg Tab) 650 mg PO Q4H PRN PRN Reason: Headache or Minor Fever Stop: 09/17/22 12:03 Al Hydrox/Mg Hydrox/Simethicone (Aluminum/Magnesium Susp 30 Ml Udc) 30 ml PO Q4H PRN PRN Reason: GI Upset Stop: 09/17/22 12:03 Bismuth Subsalicylate (Bismuth Subsalicylate Liqd 236 Ml) 15 ml PO PRN PRN PRN Reason: Loose Stool Stop: 09/17/22 12:03 Hydroxyzine HCl (Hydroxyzine Hcl 25 Mg Tab) 25 mg PO Q4H PRN PRN Reason: Anxiety Stop: 09/17/22 12:03 Hydroxyzine HCl (Hydroxyzine Hcl 25 Mg Tab) 50 mg PO HSZ PRN PRN Reason: Insomnia Stop: 09/17/22 12:03 Magnesium Hydroxide (Magnesium Hydroxide Susp 30 Ml Udc) 30 ml PO DAILY PRN PRN Reason: Constipation Stop: 09/17/22 12:03 Ondansetron HCl (Ondansetron 4 Mg Od Tab) 4 mg PO Q8H PRN PRN Reason: NAUSEA/VOMITING Stop: 09/17/22 14:55 Pantoprazole Sodium (Pantoprazole 40 Mg Tab) 40 mg PO DAILY DERRICK Stop: 09/17/22 14:59 Last Admin: 08/19/22 09:24 Dose: 40 mg Sertraline HCl (Sertraline Hcl 50 Mg Tablet) 50 mg PO DAILY DERRICK Stop: 09/17/22 14:59 Last Admin: 08/19/22 09:24 Dose: 50 mg Sodium Chloride (Sodium Chloride 0.65% Na Soln 45 Ml ([place])) 1 - 2 sprays NA PRN PRN PRN Reason: Nasal Dryness/Congestion Stop: 09/17/22 12:03
[2022-08-19 20:49] LABS: Vitamin D, 25 Hydrox 20.3 ng/ml (30-100)
[2022-08-19] MEDS: NITROFURANTOIN MONOHYDRATE 100 MG CAP PO SCH (21:01)
--- NOTE | 2022-08-20 07:55 | Psychiatric Progress Note ---
Date of Service August 20, 2022 Impression / Recommendations Impression 31 year old woman with a history of ADHD, depression, anxiety who was admitted for impulsive interrupted suicide attempt and recent lack of sleep with mood changes. Diagnostically consistent with unspecified mood disorder with differential including BPAD type II recent hypomanic episode vs mixed episode vs complex trauma/PTSD vs stimulant/SSRI induced hypomania. She is deemed in need of psychiatric hospitalization for diagnostic clarification, safety and stabilization, medication management and development of further coping skills. Began to discuss medication treatment options including mood stabilizers but will hold off for now until further diagnostic clarification via screening tools. She consented to discontinuing Adderall for now and reducing sertraline dose. Reviewed side effects including but not limited to: GI, FAM, sexual side effects, and counseled on black box warning of potential for emergence of or increased SI and need to let staff know should this occur or should they feel unsafe. Also discussed importance of seeking emergency care following discharge if this side effect occurs in the future. : Reports having "slept better last night". She awoke several times but was able to get back to sleep. Feels more energetic today; is uncertain whether that can be attributed to any degree to bupropion. Acevedo BPD questionnaire answered "yes" to all but 2 questions, MDQ answered "yes" to all but 5 questions. Reviewed with pt result of yesterday's studies, which showed a low vitamin D level. Discussed treatment for this. Has tolerated addition of bupropion with, thus far, no adverse effect. Reports no new or worse problems. She reports no current suicidal thoughts, but notes that she's "still feeling very uncomfortable" (with anxiety). 08/19/2022: Pt pleasant & cooperative. Spoke at some length of her history of periods of being "too up", during which she makes impulsive decisions she later regrets and overspends. These usually last no more than a couple of days but pt now says "this has been kind of building since May". She cites increasing inability to sleep and reduced need for sleep, racing thoughts, and impulsive decisions about sexual relationships that have caused serious marital problems. Reviewed medication options at some length. This included discussion of bupropion as replacement for sertraline. This medication is reputed to induce less mood cycling than other antidepressants yet is sufficiently stimulant-like to be of potential benefit for ADHD symptoms. We spoke at greater length of mood stabilizer options. She wishes to avoid antipsychotics if possible and to minimize the need for laboratory monitoring. Thus, the focus turned to lamotrigine. Reviewed the known risk of Martinez-Omid syndrome associated with rapid dose titration, including after stopping the medication for 2 weeks. (1) Bipolar I disorder, single manic episode, moderate: Present on Admission?: Yes (2) Suicide attempt: (3) ADHD (attention deficit hyperactivity disorder), inattentive type: Present on Admission?: Yes (4) Vitamin D deficiency: Present on Admission?: Yes Plan 08/20/2022: * stop sertraline * continue bupropion XL 150 mg daily * continue lamotrigine 25 mg daily; plan increase to 50 mg daily in 2 weeks, then to 100 mg daily after 2 more weeks 08/19/2022: * maintain off stimulants * start bupropion XL 150 mg daily * start lamotrigine 25 mg daily, increase to 50 mg daily in 2 weeks, then to 100 mg daily after 2 more weeks 08/18/2022: The patient was admitted to the [facility] ([facility] mental health unit) on q15 min checks (behavioral with suicide precautions) for safety. The patient will participate in group, recreational, and milieu therapies and will be offered additional individual and family sessions as clinically appropriate. -decrease sertraline to 50mg qd -hold Adderall XR -Mood Disorder Questionnaire -Acevedo BPD screen Inventory Assets Strengths: supportive relationships, willing to get treatment Needs: safety and stabilization, medication adjustment, additional coping skills, increased outpatient services Suicide Risk Level Suicide Risk Level: Moderate (q15 min suicide checks) (recent suicide attempt prior to admission and impulsivity but feels safe in the hospital, able to safety contract and agrees to let nursing/staff know should they develop plan, intent or feel unable to remain safe.) Suicide Risk Level Comments: pt currently disavowing any suicidal thoughts Risk Factors Assessment Male: No Do You Have Access To A Gun?: No Health Problems: No Mental Health Diagnoses: Yes Substance Use Disorders: No Previous Attempt: Yes Family History of Suicide: No Previous Psychiatric Hospitalization: No Hopelessness: No Protective Factors Assessment Responsible for Young Children: Yes 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 Chief Complaint "I slept better". Review of Systems Sleep Information Total Hours of Sleep: 6.5 Meal Information Percent Meal Consumed - Breakfast: 100 Percent Meal Consumed - Lunch: 75 Percent Meal Consumed - Dinner: 90 Subjective Subjective Patient was seen & assessed and interval progress reviewed with treatment team (nursing and social work) Physical Exam Psychiatric Orientation: alert, oriented to person, oriented to place, oriented to time and cooperative Apperance: appropriately dressed and appropriately groomed Eye Contact: good eye contact Motor Behavior: no abnormal motor movements Speech: normal rate/rhythm/volume of speech Affect: + anxious affect Mood: + depressed mood and + anxious mood Thought Process: goal directed thought process Thought Content: reality based without delusions Suicidal Thoughts: denies suicidal thoughts (but s/p recent attempt), denies suicidal plan and denies suicidal intent Homicidal Thoughts: denies homicidal thoughts Hallucinations: no auditory hallucinations and no visual hallucinations Cognition: recent memory grossly intact, remote memory grossly intact, attention grossly intact and language grossly intact Estimated Intelligence: consistent with education level Insight: + fair insight Judgment: + limited judgement Vital Signs (Past 24 Hours) Last Vital Signs Temp 37 C 08/20/22 06:35 Pulse 97 H 08/20/22 06:35 Resp 16 08/20/22 06:35 BP 114/66 08/20/22 06:35 Pulse Ox 97 08/18/22 12:15 O2 Del Method Room Air 08/18/22 12:15 Results & Data ([facility]) Laboratory Results Laboratory Results - last 24 hr 08/19/22 19:43 Vitamin B12 706 25-OH Vitamin D Total 20.3 L Folate 9.26 Current Inpatient Medications Current Inpatient Medications: Current Inpatient Medications Acetaminophen (Acetaminophen 325 Mg Tab) 650 mg PO Q4H PRN PRN Reason: Headache or Minor Fever Stop: 09/17/22 12:03 Last Admin: 08/19/22 18:19 Dose: 650 mg Al Hydrox/Mg Hydrox/Simethicone (Aluminum/Magnesium Susp 30 Ml Udc) 30 ml PO Q4H PRN PRN Reason: GI Upset Stop: 09/17/22 12:03 Bismuth Subsalicylate (Bismuth Subsalicylate Liqd 236 Ml) 15 ml PO PRN PRN PRN Reason: Loose Stool Stop: 09/17/22 12:03 Bupropion HCl (Bupropion Xl 150 Mg Tabcr) 150 mg PO QAM [facility] Stop: 09/19/22 08:59 Hydroxyzine HCl (Hydroxyzine Hcl 25 Mg Tab) 25 mg PO Q4H PRN PRN Reason: Anxiety Stop: 09/17/22 12:03 Hydroxyzine HCl (Hydroxyzine Hcl 25 Mg Tab) 50 mg PO HSZ PRN PRN Reason: Insomnia Stop: 09/17/22 12:03 Lamotrigine (Lamotrigine 25 Mg Tab) 25 mg PO QAM [facility] Stop: 09/19/22 08:59 Magnesium Hydroxide (Magnesium Hydroxide Susp 30 Ml Udc) 30 ml PO DAILY PRN PRN Reason: Constipation Stop: 09/17/22 12:03 Nitrofurantoin Macrocrystals (Nitrofurantoin Monohydrate 100 Mg Cap) 100 mg PO BID [facility] Stop: 08/25/22 09:01 Last Admin: 08/19/22 21:01 Dose: 100 mg Ondansetron HCl (Ondansetron 4 Mg Od Tab) 4 mg PO Q8H PRN PRN Reason: NAUSEA/VOMITING Stop: 09/17/22 14:55 Pantoprazole Sodium (Pantoprazole 40 Mg Tab) 40 mg PO DAILY [facility] Stop: 09/17/22 14:59 Last Admin: 08/19/22 09:24 Dose: 40 mg Sertraline HCl (Sertraline Hcl 50 Mg Tablet) 50 mg PO DAILY [facility] Stop: 09/17/22 14:59 Last Admin: 08/19/22 09:24 Dose: 50 mg Sodium Chloride (Sodium Chloride 0.65% Na Soln 45 Ml ([place])) 1 - 2 sprays NA PRN PRN PRN Reason: Nasal Dryness/Congestion Stop: 09/17/22 12:03
[2022-08-20] MEDS: SERTRALINE HCL 50 MG TABLET PO SCH (08:56)
[2022-08-20] MEDS: buPROPion XL 150 MG TABCR PO SCH (08:56)
[2022-08-20] MEDS: NITROFURANTOIN MONOHYDRATE 100 MG CAP PO SCH ×2 (08:56→20:34)
[2022-08-20] MEDS: PANTOprazole 40 MG TAB PO SCH (08:57)
[2022-08-20] MEDS: lamoTRIgine 25 MG TAB PO SCH (08:57)
[2022-08-20] MEDS ORDERED: ERGOCALCIFEROL 50,000 UNITS 1250 MCG CAP PO SCH (09:00)
[2022-08-21] MEDS: lamoTRIgine 25 MG TAB PO SCH (08:22)
[2022-08-21] MEDS: NITROFURANTOIN MONOHYDRATE 100 MG CAP PO SCH (08:23)
[2022-08-21] MEDS: PANTOprazole 40 MG TAB PO SCH (08:23)
[2022-08-21] MEDS: buPROPion XL 150 MG TABCR PO SCH (08:23)
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
[2022-08-21 15:32] LABS: Amphetamine Urine, Confirm 8570 ng/mL (<250); Methamphetamine, Ur Confirm NEGATIVE ng/mL (<250)
== END 2022-08-21 15:35 | disposition home or self-care (01) | DRG 885 ==
LOC: ED 01:26 → 3S 11:08

== ENCOUNTER 2023-01-26 17:43 | Inpatient (IN) ==
--- NOTE | 2023-01-26 18:10 | Emergency Department Note ---
Impression & Plan Depression with suicidal ideation, Acute UTI ED Provider Note Provider: Ariel Arroyo MD DATE OF SERVICE: 01/26/2023 CHIEF COMPLAINT: Suicidal ideations HISTORY OF PRESENT ILLNESS: Patient is a 32-year-old female history of bipolar disorder presenting here today referred by her outpatient therapist for evaluation of suicidal ideations developing since last evening. Patient states last several weeks things have been going as well. They tried increasing outpatient setting her psychiatrist several medications but this has not been helping. Last week and a half has been quite tough and she states last evening began to have thoughts of wanting to harm herself to end her life. Patient states she had thoughts of trying to wreck her car to kill herself. History of inpatient hospitalization here in August for suicide attempt by attempted strangulation/hanging. Denies acting to harm her self at this time. Denies any significant homicidal ideation. States when she woke up some overnight she did have some episodes of feeling either moment somebody there but no clear celestino hallucinations reported. Did not sleep well last night. Was able to get through work today. Stated last night with her parents PAST MEDICAL HISTORY: As noted above MEDICATIONS: Reviewed home medications with her SOCIAL HISTORY: Non-smoker works here at [employer] PHYSICAL EXAM: GENERAL: alert and oriented in no acute distress on stretcher Head: normocephalic and atraumatic EYES: No injection, discharge or icterus. NECK: Trachea midline. ENT: Mucous membranes pink and moist. LUNGS: Airway patent. No retractions. Breath sounds clear HEART: Regular rate and rhythm. SKIN: Acyanotic, warm, dry, without rashes EXTREMITIES: Without signs of deformity NEUROLOGICAL: No focal deficits. No aphasia. No facial droop or slurred speech. Ambulatory. Psych: Slightly flattened affect. Endorses some suicidal ideations involving a plan to possibly wreck her car to end her life. Not responding to external stimuli. Denies HI. No clear hallucinations reported. Patient's laboratory studies reviewed. Differential includes Mood disorder, infection, hypoglycemia, electrolyte abnormalities, cardiac sources, intracerebral event, toxicologic, trauma, neurologic, as well as other pathologies. IMPRESSION/MEDICAL DECISION MAKING: Evaluated the patient with the case filler. Basic blood work completed here. Patient with suicidal ideations to possibly wrecked her car to end her life but denies current attempt. Has had outpatient psychiatry and therapist and was recommended to come here today. Denies HI. Mildly flattened affect. Tearful at times. In agreement with plan for inpatient treatment given her worsening depression and now the onset of these thoughts. Labs reassuring but UA is questionable. Patient questionably has symptoms and as such pending culture we will put on a 5-day course of Macrobid. Patient evaluated by 3 S. for inpatient psychiatric care and accepted on a voluntary 201. DIAGNOSIS: Depression with suicidal ideation, acute UTI DISPOSITION: Transfer to [facility] for further inpatient care. Past Med/Surg History Medical History (Updated 01/26/23 @ 20:45 by Ariel Arroyo M.D.) Acid reflux ADHD (attention deficit hyperactivity disorder), inattentive type Bipolar I disorder, single manic episode, moderate Chicken pox Diet controlled gestational diabetes mellitus (GDM), antepartum History of suicide attempt by hanging Hypokalemia UTI (urinary tract infection) Surgical History S/P wisdom tooth extraction Family History (Updated 11/09/22 @ 15:43 by Bety Loera MD) Father Hypertension Guillain-Wharton Mother Dyslipidemia Multiple myeloma, Onset Age: 59 Daughter No problems noted. Daughter Hip dysplasia Sister No problems noted. Sister No problems noted. 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 Beliefs That Will Affect Care: None marital status: Legally marital status details: - Current Living Situation: Alone current occupational status: employed 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 [employer] How many Children do You have: 2 Feels Safe at Home: Yes Childhood Exposure to Second-Hand Smoke: No Diet: regular Diet Comment: regular caffeine: Yes during the past year weight has: remained stable Dental Care, Regularly: Yes Physical Activity Frequency: 3-4 Times per Week Seatbelt Use: always Sunscreen Use: Yes Gender Identity: Female Assistive Devices: Contacts and Glasses Allergies Allergies Allergy/AdvReac Type Severity Reaction Status Date / Time No Known Allergies Allergy Verified 11/09/22 15:16 Home Meds Home Medications Medication Instructions Recorded Confirmed ondansetron 4 mg disintegrating 4 mg PO Q8H PRN NAUSEA/VOMITING 10/12/21 01/26/23 tablet lamotrigine 100 mg tablet 150 mg PO DAILY 09/27/22 01/26/23 (Lamictal) aripiprazole 10 mg tablet (Abilify) 20 mg PO DAILY 11/09/22 01/26/23 Previous Rx's Medication Instructions Recorded pantoprazole 40 mg tablet,delayed 40 mg PO DAILY #90 tabs 12/07/22 release Results & Data (ED) Vital Signs Vital Signs - 24 hr 01/26/23 17:46 01/26/23 19:43 Temperature 36.2 C L Temperature Source Oral Pulse Rate 95 H Respiratory Rate 18 Respiratory Effort / Characteristics Non-Labored Spontaneous Respiratory Depth Normal Blood Pressure 127/89 Blood Pressure Mean 101 Blood Pressure Position Sitting Pulse Oximetry 98 Oxygen Delivery Method Room Air Sepsis Recent Fever Within 48 Hours No Sepsis New/Unexplained Change in Mental Status No Sepsis Action Taken by Nursing No Action Required Laboratory Data 01/26/23 18:15 01/26/23 18:15 Lab Results 01/26/23 01/26/23 01/26/23 Range/Units 18:00 18:00 18:15 WBC 9.87 (4.8-10.8) K/ul RBC 4.65 (4.20-5.40) M/uL Hgb 14.0 (12.0-16.0) g/dl Hct 40.7 (37.0-47.0) % MCV 87.5 (80.0-100.0) fL MCH 30.1 (25.0-34.0) pg MCHC 34.4 (32.0-36.0) g/dL RDW Std Deviation 39.7 (36.4-46.3) fL RDW Coeff of Bogdan 12.5 (11.5-14.5) % Plt Count 282 (130-400) K/uL MPV 9.8 (9.4-12.4) fL Immature Gran % (Auto) 0.3 % Neut % (Auto) 66.2 % Lymph % (Auto) 25.6 % Miller % (Auto) 5.7 % Eos % (Auto) 1.9 % Baso % (Auto) 0.3 % Neut # (Auto) 6.53 H (1.40-6.50) K/uL Lymph # (Auto) 2.53 (1.2-3.4) K/uL Miller # (Auto) 0.56 (0.11-0.59) K/uL Eos # (Auto) 0.19 (0-0.50) K/uL Baso # (Auto) 0.03 (0-0.2) K/uL Immature Gran # (Auto) 0.03 (0.01-0.20) K/uL Sodium (136-145) mmol/L Potassium (3.5-5.1) mmol/L Chloride (98-107) mmol/L Carbon Dioxide (21-32) mmol/L Anion Gap (3-11) BUN (6-23) mg/dl Creatinine (0.6-1.2) mg/dl Est Cr Clr Drug Dosing Est GFR ( Amer) ml/min Est GFR (Non-Af Amer) ml/min BUN/Creatinine Ratio (10-20) Glucose (70-99(Fasting)) mg/dl Calcium (8.6-10.3) mg/dl Total Bilirubin (0.2-1.0) mg/dl AST (13-39) U/L ALT (7-52) U/L Alkaline Phosphatase (34-104) U/L Total Protein (6.0-8.3) gm/dl Albumin (3.4-5.0) gm/dl Globulin (2.5-4.0) gm/dl Albumin/Globulin Ratio (0.9-2) TSH (0.300-4.500) uIu/ml HCG, Qual (Negative) Urine Color Yellow Urine Appearance Turbid A (Clear) Urine pH 5.0 (4.5-7.5) Ur Specific Billings 1.021 (1.000-1.030) Urine Protein Negative (Negative) Urine Glucose (UA) Negative (Negative) Urine Ketones 1+ H (Negative) Urine Blood Trace H (Negative) Urine Nitrite Negative (Negative) Urine Bilirubin Negative (Negative) Urine Urobilinogen Negative (Negative) Ur Leukocyte Esterase 1+ H (Negative) Urine WBC (Auto) >30 H (0-5) /hpf Urine RBC (Auto) 0-4 (0-4) /hpf U Hyaline Cast (Auto) 0 (0-5) /lpf U Epithel Cells (Auto) >30 H (0-5) /lpf Urine Bacteria (Auto) 3+ H (Negative) Salicylates (3.0-30) mg/dl Urine Opiates Screen Neg (Neg) Ur Methadone, Qual Neg (Neg) Acetaminophen (10-30) ug/ml Urine Barbiturates Neg (Neg) Ur Phencyclidine (PCP) Neg (Neg) U Amphetamin/Meth Scrn Neg (Neg) MDMA (Ecstasy) Screen Neg (Neg) U Benzodiazepines Scrn Neg (Neg) Ur Cocaine Metabolite Neg (Neg) U Marijuana (THC) Screen Neg (Neg) Ethyl Alcohol mg/dL (<10.0) mg/dl SARS-CoV-2, RNA, NAAT (NEGATIVE) 01/26/23 01/26/23 01/26/23 Range/Units 18:15 18:15 18:15 WBC (4.8-10.8) K/ul RBC (4.20-5.40) M/uL Hgb (12.0-16.0) g/dl Hct (37.0-47.0) % MCV (80.0-100.0) fL MCH (25.0-34.0) pg MCHC (32.0-36.0) g/dL RDW Std Deviation (36.4-46.3) fL RDW Coeff of Bogdan (11.5-14.5) % Plt Count (130-400) K/uL MPV (9.4-12.4) fL Immature Gran % (Auto) % Neut % (Auto) % Lymph % (Auto) % Miller % (Auto) % Eos % (Auto) % Baso % (Auto) % Neut # (Auto) (1.40-6.50) K/uL Lymph # (Auto) (1.2-3.4) K/uL Miller # (Auto) (0.11-0.59) K/uL Eos # (Auto) (0-0.50) K/uL Baso # (Auto) (0-0.2) K/uL Immature Gran # (Auto) (0.01-0.20) K/uL Sodium 138 (136-145) mmol/L Potassium 3.5 (3.5-5.1) mmol/L Chloride 104 (98-107) mmol/L Carbon Dioxide 28 (21-32) mmol/L Anion Gap 6 (3-11) BUN 9 (6-23) mg/dl Creatinine 0.73 (0.6-1.2) mg/dl Est Cr Clr Drug Dosing Not Reportable Est GFR ( Amer) 127.2 ml/min Est GFR (Non-Af Amer) 109.7 ml/min BUN/Creatinine Ratio 12.3 (10-20) Glucose 133 H (70-99(Fasting)) mg/dl Calcium 9.8 (8.6-10.3) mg/dl Total Bilirubin 1.7 H (0.2-1.0) mg/dl AST 15 (13-39) U/L ALT 11 (7-52) U/L Alkaline Phosphatase 55 (34-104) U/L Total Protein 7.7 (6.0-8.3) gm/dl Albumin 4.9 (3.4-5.0) gm/dl Globulin 2.8 (2.5-4.0) gm/dl Albumin/Globulin Ratio 1.8 (0.9-2) TSH 1.266 (0.300-4.500) uIu/ml HCG, Qual (Negative) Urine Color Urine Appearance (Clear) Urine pH (4.5-7.5) Ur Specific Billings (1.000-1.030) Urine Protein (Negative) Urine Glucose (UA) (Negative) Urine Ketones (Negative) Urine Blood (Negative) Urine Nitrite (Negative) Urine Bilirubin (Negative) Urine Urobilinogen (Negative) Ur Leukocyte Esterase (Negative) Urine WBC (Auto) (0-5) /hpf Urine RBC (Auto) (0-4) /hpf U Hyaline Cast (Auto) (0-5) /lpf U Epithel Cells (Auto) (0-5) /lpf Urine Bacteria (Auto) (Negative) Salicylates < 3.0 L (3.0-30) mg/dl Urine Opiates Screen (Neg) Ur Methadone, Qual (Neg) Acetaminophen < 3 L (10-30) ug/ml Urine Barbiturates (Neg) Ur Phencyclidine (PCP) (Neg) U Amphetamin/Meth Scrn (Neg) MDMA (Ecstasy) Screen (Neg) U Benzodiazepines Scrn (Neg) Ur Cocaine Metabolite (Neg) U Marijuana (THC) Screen (Neg) Ethyl Alcohol mg/dL (<10.0) mg/dl SARS-CoV-2, RNA, NAAT (NEGATIVE) 01/26/23 01/26/23 01/26/23 Range/Units 18:15 18:15 18:18 WBC (4.8-10.8) K/ul RBC (4.20-5.40) M/uL Hgb (12.0-16.0) g/dl Hct (37.0-47.0) % MCV (80.0-100.0) fL MCH (25.0-34.0) pg MCHC (32.0-36.0) g/dL RDW Std Deviation (36.4-46.3) fL RDW Coeff of Bogdan (11.5-14.5) % Plt Count (130-400) K/uL MPV (9.4-12.4) fL Immature Gran % (Auto) % Neut % (Auto) % Lymph % (Auto) % Miller % (Auto) % Eos % (Auto) % Baso % (Auto) % Neut # (Auto) (1.40-6.50) K/uL Lymph # (Auto) (1.2-3.4) K/uL Miller # (Auto) (0.11-0.59) K/uL Eos # (Auto) (0-0.50) K/uL Baso # (Auto) (0-0.2) K/uL Immature Gran # (Auto) (0.01-0.20) K/uL Sodium (136-145) mmol/L Potassium (3.5-5.1) mmol/L Chloride (98-107) mmol/L Carbon Dioxide (21-32) mmol/L Anion Gap (3-11) BUN (6-23) mg/dl Creatinine (0.6-1.2) mg/dl Est Cr Clr Drug Dosing Est GFR ( Amer) ml/min Est GFR (Non-Af Amer) ml/min BUN/Creatinine Ratio (10-20) Glucose (70-99(Fasting)) mg/dl Calcium (8.6-10.3) mg/dl Total Bilirubin (0.2-1.0) mg/dl AST (13-39) U/L ALT (7-52) U/L Alkaline Phosphatase (34-104) U/L Total Protein (6.0-8.3) gm/dl Albumin (3.4-5.0) gm/dl Globulin (2.5-4.0) gm/dl Albumin/Globulin Ratio (0.9-2) TSH (0.300-4.500) uIu/ml HCG, Qual Negative (Negative) Urine Color Urine Appearance (Clear) Urine pH (4.5-7.5) Ur Specific Billings (1.000-1.030) Urine Protein (Negative) Urine Glucose (UA) (Negative) Urine Ketones (Negative) Urine Blood (Negative) Urine Nitrite (Negative) Urine Bilirubin (Negative) Urine Urobilinogen (Negative) Ur Leukocyte Esterase (Negative) Urine WBC (Auto) (0-5) /hpf Urine RBC (Auto) (0-4) /hpf U Hyaline Cast (Auto) (0-5) /lpf U Epithel Cells (Auto) (0-5) /lpf Urine Bacteria (Auto) (Negative) Salicylates (3.0-30) mg/dl Urine Opiates Screen (Neg) Ur Methadone, Qual (Neg) Acetaminophen (10-30) ug/ml Urine Barbiturates (Neg) Ur Phencyclidine (PCP) (Neg) U Amphetamin/Meth Scrn (Neg) MDMA (Ecstasy) Screen (Neg) U Benzodiazepines Scrn (Neg) Ur Cocaine Metabolite (Neg) U Marijuana (THC) Screen (Neg) Ethyl Alcohol mg/dL < 10.0 (<10.0) mg/dl SARS-CoV-2, RNA, NAAT NEGATIVE (NEGATIVE) Administered Medications Aripiprazole (Aripiprazole 10 Mg Tab) 20 mg PO HS DERRICK Stop: 02/25/23 21:59 Last Admin: 01/26/23 22:27 Dose: 20 mg Documented By: EDMUNDR Hydroxyzine HCl (Hydroxyzine Hcl 25 Mg Tab) 50 mg PO HSZ PRN PRN Reason: Insomnia Stop: 02/25/23 20:17 Last Admin: 01/26/23 22:28 Dose: 50 mg Documented By: EDMUNDR Nitrofurantoin Macrocrystals (Nitrofurantoin Monohydrate 100 Mg Cap) 100 mg PO BID DERRICK Stop: 08/23/23 20:59 Last Admin: 01/26/23 22:27 Dose: 100 mg Documented By: JSR Discontinued Medications Aripiprazole (Aripiprazole 15 Mg Tab) 20 mg PO HS DERRICK Stop: 02/25/23 20:59 Last Admin: 01/26/23 22:20 Dose: Not Given Documented By: RB Discharge Plan Visit Data Chief Complaint: Mental Health Evaluation Stated Complaint: SUICIDAL IDEATIONS ED Provider: Ariel Arroyo Discharge Problem: Depression with suicidal ideation, Acute UTI Patient Disposition: Transfer Behavioral Health Fac Discharge Instructions Interventions: ED Discharge Assessment Last Done: 01/26/23 20:40
[2023-01-26 18:18] LABS: Appearance Urine Turbid (Clear); Bacteria Urine Automated 3+ (Negative); Bilirubin Urine Negative (Negative); Blood Urine Trace (Negative); Color Urine Yellow; Epithelial Cell Urine Auto >30 /lpf (0-5); Glucose Urine UA Negative (Negative); Ketones Urine 1+ (Negative); Leukocyte Esterase Urine 1+ (Negative); Nitrite Urine Negative (Negative); Protein Urine Negative (Negative); Specific Gravity Urine 1.021 (1.000-1.030); Urobilinogen Urine Negative (Negative); WBC Urine Automated >30 /hpf (0-5)
[2023-01-26 18:35] LABS: Amphetamines+Metham, Urine Neg (Neg); Barbiturates, Urine Neg (Neg); Benzodiazepine, Urine Neg (Neg); Cocaine, Urine Neg (Neg); MDMA (Ecstacy), Urine Neg (Neg); Methadone, Urine Neg (Neg); Opiate, Urine Neg (Neg); Phencyclidine, Urine Neg (Neg)
[2023-01-26 18:35] LABS: Basophils # (auto) 0.03 K/uL (0-0.2); Basophils % (auto) 0.3 %; Eosinophils # (auto) 0.19 K/uL (0-0.50); Eosinophils % (auto) 1.9 %; Hematocrit (blood only) 40.7 % (37.0-47.0); Immature Granulocytes # (auto) 0.03 K/uL (0.01-0.20); Immature Granulocytes % (auto) 0.3 %; Lymphocytes # (auto) 2.53 K/uL (1.2-3.4); Lymphocytes % (auto) 25.6 %; Mean Corpuscular Hemoglobin 30.1 pg (25.0-34.0); Mean Corpuscular Hgb Conc 34.4 g/dL (32.0-36.0); Mean Corpuscular Volume 87.5 fL (80.0-100.0); Mean Platelet Volume 9.8 fL (9.4-12.4); Monocytes # (auto) 0.56 K/uL (0.11-0.59); Monocytes % (auto) 5.7 %; Neutrophils # (auto) 6.53 K/uL (1.40-6.50); Neutrophils % (auto) 66.2 %; Platelet Count 282 K/uL (130-400); RDW Coefficient of Variation 12.5 % (11.5-14.5); RDW Standard Deviation 39.7 fL (36.4-46.3); Red Blood Count 4.65 M/uL (4.20-5.40); White Blood Count 9.87 K/ul (4.8-10.8)
[2023-01-26 18:37] LABS: Cast Urine Automated 0 /lpf (0-5); RBC Urine Automated 0-4 /hpf (0-4)
[2023-01-26 18:44] LABS: Acetaminophen < 3 ug/ml (10-30); Salicylate < 3.0 mg/dl (3.0-30)
[2023-01-26 18:45] LABS: Pregnancy Test, Serum Negative (Negative)
[2023-01-26 18:48] LABS: Alanine Aminotransferase 11 U/L (7-52); Albumin Globulin Ratio 1.8 (0.9-2); Albumin Level 4.9 gm/dl (3.4-5.0); Alkaline Phosphatase 55 U/L (34-104); Anion Gap 6 (3-11); Aspartate Aminotransferase 15 U/L (13-39); BUN Creatinine Ratio 12.3 (10-20); Bilirubin,Total 1.7 mg/dl (0.2-1.0); Blood Urea Nitrogen 9 mg/dl (6-23); Calcium 9.8 mg/dl (8.6-10.3); Carbon Dioxide 28 mmol/L (21-32); Chloride 104 mmol/L (98-107); Est GFR (African American) 127.2 ml/min; Est GFR (Non-African American) 109.7 ml/min; Globulin 2.8 gm/dl (2.5-4.0); Glucose 133 mg/dl (70-99(Fasting)); Potassium 3.5 mmol/L (3.5-5.1); Sodium 138 mmol/L (136-145); Total Protein 7.7 gm/dl (6.0-8.3)
[2023-01-26] MEDS ORDERED: MAGNESIUM HYDROXIDE SUSP 30 ML UDC PO PRN (20:18)
[2023-01-26] MEDS ORDERED: hydrOXYzine HCl 25 MG TAB PO PRN ×2 (20:18)
[2023-01-26] MEDS ORDERED: ALUMINUM/MAGNESIUM SUSP 30 ML UDC PO PRN (20:18)
[2023-01-26] MEDS ORDERED: SODIUM CHLORIDE 0.65% NA SOLN 45 ML (OCEAN) PRN (20:18)
[2023-01-26] MEDS ORDERED: BISMUTH SUBSALICYLATE LIQD 236 ML PO PRN (20:18)
[2023-01-26] MEDS ORDERED: ARIPiprazole 15 MG TAB PO SCH (21:00)
[2023-01-26] MEDS: NITROFURANTOIN MONOHYDRATE 100 MG CAP PO SCH (22:27)
[2023-01-26] MEDS: ARIPiprazole 10 MG TAB PO SCH (22:27)
--- NOTE | 2023-01-27 09:20 | History & Physical ---
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 Diagnostically consistent with episode of bipolar depression in context of recent stressors including breakup and move. She is deemed in need of psychiatric hospitalization for diagnostic clarification, safety and stabilization, medication management and development of further coping skills. Discussed medication treatment options in detail including mood stabilizers, SSRIs, SNRIs. Discussed risks, benefits and alternatives. She would like to start either escitalopram or venlafaxine, wants some time to think through which one. Reviewed side effects including but not limited to: GI, FAM, sexual side effects with escitalopram and additional potential for elevated HR, BP with venlafaxine. Also reviewed side effects with abilify including: movement (TD, NMS), cardiac (QTc prolongation), and metabolic (stroke, insulin resistance) and necessity for fasting lipid and glucose labwork and AIMS done with score of 0 and risk of triplett-jimmy syndrome with lamictal and confirmed she has been taking this regularly. (1) Depression with suicidal ideation: (2) Acute UTI: (3) Bipolar disorder with severe depression: Plan 01/27/2023: The patient was admitted to the [facility] ([facility]) on q15 min checks (behavioral with suicide precautions) for safety. The patient will participate in group, recreational, and milieu therapies and will be offered additional individual and family sessions as clinically appropriate. -continue with Lamictal and abilify; lamictal dose could be titrated over time but felt that an antidepressant would be most helpful at this point given severity of depression -escitalopram or venlafaxine -Fasting lipid panel, glucose and HbA1c Inventory Assets Strengths: supportive relationships, willing to get treatment Needs: safety and stabilization, medication adjustment, additional coping skills, increased outpatient services Suicide Risk Level Suicide Risk Level: High-Moderate (q15 min suicide checks) (severe depression with SI with plan prior to admission but feels safe in the hospital, able to safety contract and agrees to let nursing/staff know should they develop plan, intent or feel unable to remain safe.) Suicide Risk Level Comments: Risk Factors Assessment : Yes Do You Have Access To A Gun?: No Mental Health Diagnoses: Yes Previous Attempt: Yes Family History of Suicide: No Previous Psychiatric Hospitalization: Yes Protective Factors Assessment Responsible for Young Children: Yes Employed: Yes ([employer] ([employer])) Supportive Family: Yes Good Rapport with Provider: Yes Psychiatric History Identifying Data MARIANGEL ORTIZ is a 32-year-old F who currently lives in [place] with her parents and her children half the time, has a history of BPAD and possible ADHD, and was admitted on 01/26/23 20:18 on a 201 voluntary commitment for SI with sharri york. Chief Complaint "It's a long story, there's been a lot". History of Present Illness She presents for psychiatric admission for worsening depression and SI with plan of crashing her car in the context of multiple psychosocial stressors including recent breakup on and then moved in with her parents. Has been very "weepy" in the mornings, anhedonia, hopeless, low motivation, low energy, sleep varies, decreased appetite (maybe lost about 5 lbs) over the last two weeks. SI comes and goes but since has intensified and started to think about crashing her car. Has also been anxious which has gotten worse as depression has worsened. Two panic attacks in the last two weeks. Endorses "feeling disoriented in a way" which she describes as some difficulty with recalling information and at times questioning if dreams are real or not. Denies any auditory or visual hallucinations except on felt like something or someone (like a figure) was in her room on awakening but then was able to reality-test by looking around the room. No depersonalization. She is currently prescribed psychiatric medications of lamictal 150mg qd (no side effects, seems to help) and abilify 20mg HS (maybe since September or October, sometimes wonders if she has a tremor versus from caffeine, seemed to help after dose increases but then mood gets depressed again). Has tried propranolol prn a few times for panic attacks but seems to impact her blood pressure. No recent episodes of triston. 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) Outpatient Services: [facility] for psychiatry with Rossy (next apt 02/09/2023) and [facility] for therapy with Tori (weekly) Previous Psych Admissions: [facility] August 2022 Do You Have Access To A Gun?: No History of Previous Suicide Attempt: Yes (08/18/2022) Describe Attempts in the Past: wrapped cord around her neck Past Medication Trials: sertraline (stopped after hospitalization in August), Wellbutrin (August to October but seemed to be making depression worse), Adderall (helped with energy but maybe caused some triston) Past Head Trauma/Neuro History History of Concussion/Seizure: No Allergies Allergy/AdvReac Type Severity Reaction Status Date / Time No Known Allergies Allergy Verified 11/09/22 15:16 Home Medications Medication Instructions Recorded Confirmed Type ondansetron 4 mg disintegrating 4 mg PO Q8H PRN NAUSEA/VOMITING 10/12/21 01/26/23 History tablet lamotrigine 100 mg tablet 150 mg PO QAM 09/27/22 01/27/23 History (Lamictal) aripiprazole 10 mg tablet (Abilify) 20 mg PO HS 11/09/22 01/27/23 History pantoprazole 40 mg tablet,delayed 40 mg PO DAILY #90 tabs 12/07/22 01/26/23 Rx release hydroxyzine HCl 10 mg tablet 10 mg PO DAILY PRN Anxiety 01/27/23 01/27/23 History propranolol 10 mg tablet 10 mg PO BID PRN Anxiety 01/27/23 01/27/23 History Family History Family History of: None Alcohol History Hx of Alcohol Use Over the Past 12 Months: No AUDIT Total Score: 0 Very occasional use Smoking Use Have You Smoked or Used Tobacco Products in the Last 30 Days: No Smoking Status: Never smoker Substance History Hx of Prescription Med Misuse Over the Past 12 Months: No Hx of Over the Counter Med Misuse Over the Past 12 Months: No Hx of Inhalent Misuse Over the Past 12 Months: No Hx of Organic Substance Use Over the Past 12 Months: No Hx of Illegal Substances/Street Drug Use Over Past 12 Months: No Problems as a Result of Past Substance Use: None Identified Personal History Living Arrangements: Home Employment Status: [employer] Employed ([employer]) Number Of Children: ages 6 and 2 Beliefs That Will Affect Care: None Hx Legal Problems: No Hx Traumatic Life Events: Yes Patient History Medical History Acid reflux ADHD (attention deficit hyperactivity disorder), inattentive type Bipolar I disorder, single manic episode, moderate Chicken pox Diet controlled gestational diabetes mellitus (GDM), antepartum History of suicide attempt by hanging Hypokalemia UTI (urinary tract infection) Surgical History S/P wisdom tooth extraction Family History Father Hypertension Guillain-Tiro Mother Dyslipidemia Multiple myeloma, Onset Age: 59 Daughter No problems noted. Daughter Hip dysplasia Sister No problems noted. Sister No problems noted. Denies family history of Ovarian cancer Osteoporosis Myocardial infarction Breast cancer Colorectal cancer Social History Smoking Status: Never smoker Second Hand Exposure: No; Do You Dip or Chew Tobacco: No; Hx Alcohol Use: No Hx Substance Use: No Preferred Language: Pashto Communication Ability: Effective Visual Impairment: No Limitations Hearing Ability: Normal Landscape Contractor Required: No Beliefs That Will Affect Care: None marital status: Legally marital status details: - Current Living Situation: Alone current occupational status: employed current occupation: [employer] How many Children do You have: 2 Feels Safe at Home: Yes Childhood Exposure to Second-Hand Smoke: No Diet: regular Diet Comment: regular caffeine: Yes during the past year weight has: remained stable Dental Care, Regularly: Yes Physical Activity Frequency: 3-4 Times per Week Seatbelt Use: always Sunscreen Use: Yes Gender Identity: Female Assistive Devices: Contacts and Glasses Review of Systems Review of Systems: All systems reviewed & are unremarkable except as noted in HPI & below Physical Exam Psychiatric: Orientation: alert and oriented x 3 Apperance: appropriately dressed and appropriately groomed Eye Contact: good eye contact Motor Behavior: no abnormal motor movements Speech: normal rate/rhythm/volume of speech Affect: + depressed affect, + flat affect and + tearful affect Mood: + depressed mood and + anxious mood Thought Process: goal directed thought process Thought Content: reality based without delusions and + hopelessness Suicidal Thoughts: denies suicidal intent; + reports suicidal thoughts and + reports suicidal plan (none for hospital, outside to crash car) Homicidal Thoughts: denies homicidal thoughts Hallucinations: no auditory hallucinations and no visual hallucinations Cognition: recent memory grossly intact, remote memory grossly intact, attention grossly intact and language grossly intact Estimated Intelligence: consistent with education level Insight: + limited insight Judgment: + fair judgement Vital Signs (Past 24 Hours): Last Vital Signs Temp 36.5 C 01/27/23 06:00 Pulse 81 01/27/23 06:44 Resp 16 01/27/23 06:00 BP 100/67 01/27/23 06:44 Pulse Ox 99 01/27/23 06:00 O2 Del Method Room Air 01/27/23 06:00 Exam Statement: A physical exam was performed in the ED by Dr. Arroyo for the purposes of medical clearance. I accept that physical as correct and adequate for the purposes of the inpatient physical exam. Results & Data ([facility]) Laboratory Results Laboratory Results - last 24 hr 01/26/23 01/26/23 01/26/23 18:00 18:00 18:15 WBC 9.87 RBC 4.65 Hgb 14.0 Hct 40.7 MCV 87.5 MCH 30.1 MCHC 34.4 RDW Std Deviation 39.7 RDW Coeff of Bogdan 12.5 Plt Count 282 MPV 9.8 Immature Gran % (Auto) 0.3 Neut % (Auto) 66.2 Lymph % (Auto) 25.6 Swift % (Auto) 5.7 Eos % (Auto) 1.9 Baso % (Auto) 0.3 Neut # (Auto) 6.53 H Lymph # (Auto) 2.53 Swift # (Auto) 0.56 Eos # (Auto) 0.19 Baso # (Auto) 0.03 Immature Gran # (Auto) 0.03 Sodium Potassium Chloride Carbon Dioxide Anion Gap BUN Creatinine Est Cr Clr Drug Dosing Est GFR ( Amer) Est GFR (Non-Af Amer) BUN/Creatinine Ratio Glucose Calcium Total Bilirubin AST ALT Alkaline Phosphatase Total Protein Albumin Globulin Albumin/Globulin Ratio TSH HCG, Qual Urine Color Yellow Urine Appearance Turbid A Urine pH 5.0 Ur Specific Branson 1.021 Urine Protein Negative Urine Glucose (UA) Negative Urine Ketones 1+ H Urine Blood Trace H Urine Nitrite Negative Urine Bilirubin Negative Urine Urobilinogen Negative Ur Leukocyte Esterase 1+ H Urine WBC (Auto) >30 H Urine RBC (Auto) 0-4 U Hyaline Cast (Auto) 0 U Epithel Cells (Auto) >30 H Urine Bacteria (Auto) 3+ H Salicylates Urine Opiates Screen Neg Ur Methadone, Qual Neg Acetaminophen Urine Barbiturates Neg Ur Phencyclidine (PCP) Neg U Amphetamin/Meth Scrn Neg MDMA (Ecstasy) Screen Neg U Benzodiazepines Scrn Neg Ur Cocaine Metabolite Neg U Marijuana (THC) Screen Neg Ethyl Alcohol mg/dL SARS-CoV-2, RNA, NAAT 01/26/23 01/26/23 01/26/23 18:15 18:15 18:15 WBC RBC Hgb Hct MCV MCH MCHC RDW Std Deviation RDW Coeff of Bogdan Plt Count MPV Immature Gran % (Auto) Neut % (Auto) Lymph % (Auto) Swift % (Auto) Eos % (Auto) Baso % (Auto) Neut # (Auto) Lymph # (Auto) Swift # (Auto) Eos # (Auto) Baso # (Auto) Immature Gran # (Auto) Sodium 138 Potassium 3.5 Chloride 104 Carbon Dioxide 28 Anion Gap 6 BUN 9 Creatinine 0.73 Est Cr Clr Drug Dosing Not Reportable Est GFR ( Amer) 127.2 Est GFR (Non-Af Amer) 109.7 BUN/Creatinine Ratio 12.3 Glucose 133 H Calcium 9.8 Total Bilirubin 1.7 H AST 15 ALT 11 Alkaline Phosphatase 55 Total Protein 7.7 Albumin 4.9 Globulin 2.8 Albumin/Globulin Ratio 1.8 TSH 1.266 HCG, Qual Urine Color Urine Appearance Urine pH Ur Specific Branson Urine Protein Urine Glucose (UA) Urine Ketones Urine Blood Urine Nitrite Urine Bilirubin Urine Urobilinogen Ur Leukocyte Esterase Urine WBC (Auto) Urine RBC (Auto) U Hyaline Cast (Auto) U Epithel Cells (Auto) Urine Bacteria (Auto) Salicylates < 3.0 L Urine Opiates Screen Ur Methadone, Qual Acetaminophen < 3 L Urine Barbiturates Ur Phencyclidine (PCP) U Amphetamin/Meth Scrn MDMA (Ecstasy) Screen U Benzodiazepines Scrn Ur Cocaine Metabolite U Marijuana (THC) Screen Ethyl Alcohol mg/dL SARS-CoV-2, RNA, NAAT 01/26/23 01/26/23 01/26/23 18:15 18:15 18:18 WBC RBC Hgb Hct MCV MCH MCHC RDW Std Deviation RDW Coeff of Bogdan Plt Count MPV Immature Gran % (Auto) Neut % (Auto) Lymph % (Auto) Swift % (Auto) Eos % (Auto) Baso % (Auto) Neut # (Auto) Lymph # (Auto) Swift # (Auto) Eos # (Auto) Baso # (Auto) Immature Gran # (Auto) Sodium Potassium Chloride Carbon Dioxide Anion Gap BUN Creatinine Est Cr Clr Drug Dosing Est GFR ( Amer) Est GFR (Non-Af Amer) BUN/Creatinine Ratio Glucose Calcium Total Bilirubin AST ALT Alkaline Phosphatase Total Protein Albumin Globulin Albumin/Globulin Ratio TSH HCG, Qual Negative Urine Color Urine Appearance Urine pH Ur Specific Branson Urine Protein Urine Glucose (UA) Urine Ketones Urine Blood Urine Nitrite Urine Bilirubin Urine Urobilinogen Ur Leukocyte Esterase Urine WBC (Auto) Urine RBC (Auto) U Hyaline Cast (Auto) U Epithel Cells (Auto) Urine Bacteria (Auto) Salicylates Urine Opiates Screen Ur Methadone, Qual Acetaminophen Urine Barbiturates Ur Phencyclidine (PCP) U Amphetamin/Meth Scrn MDMA (Ecstasy) Screen U Benzodiazepines Scrn Ur Cocaine Metabolite U Marijuana (THC) Screen Ethyl Alcohol mg/dL < 10.0 SARS-CoV-2, RNA, NAAT NEGATIVE Current Inpatient Medications Current Inpatient Medications: Current Inpatient Medications Acetaminophen (Acetaminophen 325 Mg Tab) 650 mg PO Q4H PRN PRN Reason: Headache or Minor Fever Stop: 02/25/23 20:17 Al Hydrox/Mg Hydrox/Simethicone (Aluminum/Magnesium Susp 30 Ml Udc) 30 ml PO Q4H PRN PRN Reason: GI Upset Stop: 02/25/23 20:17 Aripiprazole (Aripiprazole 10 Mg Tab) 20 mg PO HS DERRICK Stop: 02/25/23 21:59 Last Admin: 01/26/23 22:27 Dose: 20 mg Bismuth Subsalicylate (Bismuth Subsalicylate Liqd 236 Ml) 15 ml PO PRN PRN PRN Reason: Loose Stool Stop: 02/25/23 20:17 Hydroxyzine HCl (Hydroxyzine Hcl 25 Mg Tab) 50 mg PO HSZ PRN PRN Reason: Insomnia Stop: 02/25/23 20:17 Last Admin: 01/26/23 22:28 Dose: 50 mg Hydroxyzine HCl (Hydroxyzine Hcl 25 Mg Tab) 25 mg PO Q4H PRN PRN Reason: Anxiety Stop: 02/25/23 20:17 Magnesium Hydroxide (Magnesium Hydroxide Susp 30 Ml Udc) 30 ml PO DAILY PRN PRN Reason: Constipation Stop: 02/25/23 20:17 Nitrofurantoin Macrocrystals (Nitrofurantoin Monohydrate 100 Mg Cap) 100 mg PO BID DERRICK Stop: 01/31/23 20:59 Last Admin: 01/26/23 22:27 Dose: 100 mg Sodium Chloride (Sodium Chloride 0.65% Na Soln 45 Ml ([place])) 1 - 2 sprays NA PRN PRN PRN Reason: Nasal Dryness/Congestion Stop: 02/25/23 20:17
[2023-01-27] MEDS: NITROFURANTOIN MONOHYDRATE 100 MG CAP PO SCH ×2 (09:30→21:41)
[2023-01-27] MEDS ORDERED: hydrOXYzine HCl 10 MG TAB PO PRN (10:55)
[2023-01-27] MEDS: CHOLECALCIFEROL 1,000 UNITS 25 MCG TAB PO SCH (12:31)
[2023-01-27] MEDS: PANTOprazole 40 MG TAB PO SCH (12:31)
[2023-01-27] MEDS: lamoTRIgine 100 MG TAB PO SCH (12:31)
[2023-01-27] MEDS: VENLAFAXINE HCL XR 37.5 MG CAPXR PO SCH (13:33)
[2023-01-27] MEDS: ARIPiprazole 10 MG TAB PO SCH (21:41)
[2023-01-27] MEDS: hydrOXYzine HCl 25 MG TAB PO PRN (21:43)
[2023-01-27] MEDS: ACETAMINOPHEN 325 MG TAB PO PRN (21:43)
[2023-01-28 08:15] LABS: Chol HDL Ratio 4.7 (0-5)
--- NOTE | 2023-01-28 09:00 | Psychiatric Progress Note ---
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 Diagnostically consistent with episode of bipolar depression in context of recent stressors including breakup and move. She is deemed in need of psychiatric hospitalization for diagnostic clarification, safety and stabilization, medication management and development of further coping skills. 01/28/2023: Ongoing severe depression with SI. Reviewed fasting labwork, lipid panel and glucose within normal limits. HbA1c pending. Consents to increasing Effexor XR for ongoing titration. Overall, I spent a total of 35 minutes including review of chart records, review of labwork, direct evaluation of the patient at bedside, counseling the patient, ordering medication, discussion of the patient at treatment team and documentation in the electronic health record. (1) Depression with suicidal ideation: (2) Acute UTI: (3) Bipolar disorder with severe depression: Plan 01/28/2023: Started Effexor XR 37.5mg daily, will increase to 75mg qd tomorrow 01/27/2023: The patient was admitted to the [facility] ([facility] health unit) on q15 min checks (behavioral with suicide precautions) for safety. The patient will participate in group, recreational, and milieu therapies and will be offered additional individual and family sessions as clinically appropriate. -continue with Lamictal and abilify; lamictal dose could be titrated over time but felt that an antidepressant would be most helpful at this point given severity of depression -escitalopram or venlafaxine -Fasting lipid panel, glucose and HbA1c Inventory Assets Strengths: supportive relationships, willing to get treatment Needs: safety and stabilization, medication adjustment, additional coping skills, increased outpatient services Suicide Risk Level Suicide Risk Level: High-Moderate (q15 min suicide checks) (severe depression with SI with plan prior to admission but feels safe in the hospital, able to safety contract and agrees to let nursing/staff know should they develop plan, intent or feel unable to remain safe.) Suicide Risk Level Comments: Risk Factors Assessment : Yes Do You Have Access To A Gun?: No Mental Health Diagnoses: Yes Previous Attempt: Yes Family History of Suicide: No Previous Psychiatric Hospitalization: Yes Protective Factors Assessment Responsible for Young Children: Yes Employed: Yes [place] [place] Supportive Family: Yes Good Rapport with Provider: Yes Interval History Identifying Information MARIANGEL DIANA is a 32-year-old F who currently lives in [place] with her parents and her children half the time, has a history of BPAD and possible ADHD, and was admitted on 01/26/23 20:18 on a 201 voluntary commitment for SI with plan. Chief Complaint "yeah it's still really bad". Review of Systems Sleep Information Total Hours of Sleep: 6.5 Meal Information Percent Meal Consumed - Breakfast: 50 Percent Meal Consumed - Lunch: 75 Percent Meal Consumed - Dinner: 75 Subjective Subjective Patient was seen & assessed and interval progress reviewed with treatment team nursing and social work. Continues to have SI, severe depression. Had Vistaril prn last evening. Started Effexor XR, no side effects so far. Attending groups and trying to stay out of her room and not isolate. tearful at times. Feels a lot of her hopelessness and SI is driven by regret and guilt about separation of her marriage and feeling loneliness/isolation. Physical Exam Psychiatric Orientation: alert and oriented x 3 Apperance: appropriately dressed and appropriately groomed Eye Contact: good eye contact Motor Behavior: no abnormal motor movements Speech: normal rate/rhythm/volume of speech Affect: + depressed affect, + flat affect and + tearful affect Mood: + depressed mood and + anxious mood Thought Process: goal directed thought process Thought Content: reality based without delusions and + hopelessness Suicidal Thoughts: denies suicidal intent; + reports suicidal thoughts and + reports suicidal plan (none for hospital, outside to crash car) Homicidal Thoughts: denies homicidal thoughts Hallucinations: no auditory hallucinations and no visual hallucinations Cognition: recent memory grossly intact, remote memory grossly intact, attention grossly intact and language grossly intact Estimated Intelligence: consistent with education level Insight: + fair insight Judgment: + fair judgement Vital Signs (Past 24 Hours) Last Vital Signs Temp 36.9 C 01/28/23 06:22 Pulse 85 01/28/23 06:24 Resp 16 01/28/23 06:22 BP 114/79 01/28/23 06:24 Pulse Ox 99 01/27/23 06:00 O2 Del Method Room Air 01/27/23 06:00 Results & Data ([facility]) Laboratory Results Laboratory Results - last 24 hr 01/28/23 01/28/23 07:29 07:29 Fasting Glucose 87 Estimat Average Glucose Pending Hemoglobin A1c Pending Triglycerides 83 Cholesterol 185 LDL Cholesterol, Calc 129 VLDL Cholesterol, Calc 17 HDL Cholesterol 39 Cholesterol/HDL Ratio 4.7 Current Inpatient Medications Current Inpatient Medications: Current Inpatient Medications Acetaminophen (Acetaminophen 325 Mg Tab) 650 mg PO Q4H PRN PRN Reason: Headache or Minor Fever Stop: 02/25/23 20:17 Last Admin: 01/27/23 21:43 Dose: 650 mg Al Hydrox/Mg Hydrox/Simethicone (Aluminum/Magnesium Susp 30 Ml Udc) 30 ml PO Q4H PRN PRN Reason: GI Upset Stop: 02/25/23 20:17 Aripiprazole (Aripiprazole 10 Mg Tab) 20 mg PO HS DERRICK Stop: 02/25/23 21:59 Last Admin: 01/27/23 21:41 Dose: 20 mg Bismuth Subsalicylate (Bismuth Subsalicylate Liqd 236 Ml) 15 ml PO PRN PRN PRN Reason: Loose Stool Stop: 02/25/23 20:17 Hydroxyzine HCl (Hydroxyzine Hcl 10 Mg Tab) 10 mg PO Q4H PRN PRN Reason: Anxiety Stop: 02/25/23 20:17 Hydroxyzine HCl (Hydroxyzine Hcl 25 Mg Tab) 25 mg PO HSZ PRN PRN Reason: Insomnia Stop: 02/25/23 20:17 Last Admin: 01/27/23 21:43 Dose: 25 mg Lamotrigine (Lamotrigine 100 Mg Tab) 150 mg PO QAM DERRICK Stop: 02/26/23 10:59 Last Admin: 01/27/23 12:31 Dose: 150 mg Magnesium Hydroxide (Magnesium Hydroxide Susp 30 Ml Udc) 30 ml PO DAILY PRN PRN Reason: Constipation Stop: 02/25/23 20:17 Nitrofurantoin Macrocrystals (Nitrofurantoin Monohydrate 100 Mg Cap) 100 mg PO BID DERRICK Stop: 01/31/23 20:59 Last Admin: 01/27/23 21:41 Dose: 100 mg Pantoprazole Sodium (Pantoprazole 40 Mg Tab) 40 mg PO DAILY DERRICK Stop: 02/26/23 10:59 Last Admin: 01/27/23 12:31 Dose: 40 mg Sodium Chloride (Sodium Chloride 0.65% Na Soln 45 Ml ([place])) 1 - 2 sprays NA PRN PRN PRN Reason: Nasal Dryness/Congestion Stop: 02/25/23 20:17 Venlafaxine HCl (Venlafaxine Hcl Xr 37.5 Mg Capxr) 37.5 mg PO QAM DERRICK Stop: 02/26/23 12:59 Last Admin: 01/27/23 13:33 Dose: 37.5 mg Vitamin D (Cholecalciferol 1,000 Units 25 Mcg Tab) 1,000 units PO QAM DERRICK Stop: 02/26/23 11:29 Last Admin: 01/27/23 12:31 Dose: 1,000 units Mental Health & Subst Abuse Tx Psychiatrist Name of Psychiatrist: Ramu Carver Psychiatrist's Date Of Appointment With Psychiatric Provider: 02/09 Time of Appointment with Psychiatrist: 1530 Therapist Name of Therapist: Endy Therapist's Time of Therapist Appointment: 01/29 at 1700;02/02 at 1615 Market Research Senior Project Manager Name of Market Research Senior Project Manager: Denies Post Discharge Appointments Primary Care Physician Name Of Family Doctor/PCP: Dr Casper Primary Care Contact Information Discharge Discharge Address: [address] [place] [address]
[2023-01-28] MEDS: CHOLECALCIFEROL 1,000 UNITS 25 MCG TAB PO SCH (09:06)
[2023-01-28] MEDS: lamoTRIgine 100 MG TAB PO SCH (09:06)
[2023-01-28] MEDS: VENLAFAXINE HCL XR 37.5 MG CAPXR PO SCH (09:07)
[2023-01-28] MEDS: NITROFURANTOIN MONOHYDRATE 100 MG CAP PO SCH ×2 (09:07→21:46)
[2023-01-28] MEDS: PANTOprazole 40 MG TAB PO SCH (09:07)
[2023-01-28] MEDS: ARIPiprazole 10 MG TAB PO SCH (21:45)
[2023-01-28] MEDS: hydrOXYzine HCl 25 MG TAB PO PRN (21:46)
[2023-01-29 08:00] LABS: Estimated Average Glucose 100 mg/dl; Hemoglobin A1C 5.1 % (4.5-5.6)
--- NOTE | 2023-01-29 08:36 | Psychiatric Progress Note ---
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 Diagnostically consistent with episode of bipolar depression in context of recent stressors including breakup and move. She is deemed in need of psychiatric hospitalization for diagnostic clarification, safety and stabilization, medication management and development of further coping skills. 01/29/2023: Ongoing severe depression with SI, tearfulness and grief. Reviewed normal HbA1c results. Some stomach pain, suspect from higher dose of Effexor XR, she is comfortable with continuing with this for now and addressing side effects symptomatically given likelihood this will improve over time. Overall, I spent a total of 40 minutes including review of chart records, review of labwork, direct evaluation of the patient at bedside, counseling the patient, ordering medication, discussion of the patient at treatment team and documentation in the electronic health record. (1) Depression with suicidal ideation: (2) Acute UTI: (3) Bipolar disorder with severe depression: Plan 01/29/2023: Increase to Effexor XR 75mg qd 01/28/2023: Started Effexor XR 37.5mg daily, will increase to 75mg qd tomorrow 01/27/2023: The patient was admitted to the [facility] ([facility]) on q15 min checks (behavioral with suicide precautions) for safety. The patient will participate in group, recreational, and milieu therapies and will be offered additional individual and family sessions as clinically appropriate. -continue with Lamictal and abilify; lamictal dose could be titrated over time but felt that an antidepressant would be most helpful at this point given severity of depression -escitalopram or venlafaxine -Fasting lipid panel, glucose and HbA1c Inventory Assets Strengths: supportive relationships, willing to get treatment Needs: safety and stabilization, medication adjustment, additional coping skills, increased outpatient services Suicide Risk Level Suicide Risk Level: High-Moderate (q15 min suicide checks) (severe depression with SI with plan prior to admission but feels safe in the hospital, able to s afety contract and agrees to let nursing/staff know should they develop plan, intent or feel unable to remain safe.) Suicide Risk Level Comments: Risk Factors Assessment : Yes Do You Have Access To A Gun?: No Mental Health Diagnoses: Yes Previous Attempt: Yes Family History of Suicide: No Previous Psychiatric Hospitalization: Yes Protective Factors Assessment Responsible for Young Children: Yes Employed: Yes ([employer] ([employer])) Supportive Family: Yes Good Rapport with Provider: Yes Interval History Identifying Information MARIANGEL ORTIZ is a 32-year-old F who currently lives in [place] with her parents and her children half the time, has a history of BPAD and possible ADHD, and was admitted on 01/26/23 20:18 on a 201 voluntary commitment for SI with plan. Chief Complaint "I'm ok". Review of Systems Sleep Information Total Hours of Sleep: 6.5 Meal Information Percent Meal Consumed - Breakfast: 100 Percent Meal Consumed - Lunch: 90 Percent Meal Consumed - Dinner: 90 Subjective Subjective Patient was seen & assessed and interval progress reviewed with treatment team nursing and social work. Slept better last night. Some stomach discomfort after higher dose of Effexor XR this morning noting her stomach feels "sour". Reviewed option to use Zofran if needed. Ongoing SI and depression. Tearful in discussing that she never grieved her separation with her before starting her most recent relationship and now is grieving the end of both relationships but predominantly her marriage and regret over how her actions while she was manic may have contributed to this. Physical Exam Psychiatric Orientation: alert and oriented x 3 Apperance: appropriately dressed and appropriately groomed Eye Contact: good eye contact Motor Behavior: no abnormal motor movements Speech: normal rate/rhythm/volume of speech Affect: + depressed affect, + flat affect and + tearful affect Mood: + depressed mood and + anxious mood Thought Process: goal directed thought process Thought Content: reality based without delusions and + hopelessness Suicidal Thoughts: denies suicidal intent; + reports suicidal thoughts and + reports suicidal plan (none for hospital, outside to crash car) Homicidal Thoughts: denies homicidal thoughts Hallucinations: no auditory hallucinations and no visual hallucinations Cognition: recent memory grossly intact, remote memory grossly intact, attention grossly intact and language grossly intact Estimated Intelligence: consistent with education level Insight: + fair insight Judgment: + fair judgement Vital Signs (Past 24 Hours) Last Vital Signs Temp 37.1 C 01/29/23 06:22 Pulse 78 01/29/23 06:26 Resp 18 01/29/23 06:22 BP 112/74 01/29/23 06:26 Pulse Ox 99 01/27/23 06:00 O2 Del Method Room Air 01/27/23 06:00 Results & Data ([facility]) Laboratory Results Laboratory Results - last 24 hr 01/28/23 07:29 Estimat Average Glucose 100 Hemoglobin A1c 5.1 Current Inpatient Medications Current Inpatient Medications: Current Inpatient Medications Acetaminophen (Acetaminophen 325 Mg Tab) 650 mg PO Q4H PRN PRN Reason: Headache or Minor Fever Stop: 02/25/23 20:17 Last Admin: 01/27/23 21:43 Dose: 650 mg Al Hydrox/Mg Hydrox/Simethicone (Aluminum/Magnesium Susp 30 Ml Udc) 30 ml PO Q4H PRN PRN Reason: GI Upset Stop: 02/25/23 20:17 Aripiprazole (Aripiprazole 10 Mg Tab) 20 mg PO HS DERRICK Stop: 02/25/23 21:59 Last Admin: 01/28/23 21:45 Dose: 20 mg Bismuth Subsalicylate (Bismuth Subsalicylate Liqd 236 Ml) 15 ml PO PRN PRN PRN Reason: Loose Stool Stop: 02/25/23 20:17 Hydroxyzine HCl (Hydroxyzine Hcl 10 Mg Tab) 10 mg PO Q4H PRN PRN Reason: Anxiety Stop: 02/25/23 20:17 Hydroxyzine HCl (Hydroxyzine Hcl 25 Mg Tab) 25 mg PO HSZ PRN PRN Reason: Insomnia Stop: 02/25/23 20:17 Last Admin: 01/28/23 21:46 Dose: 25 mg Lamotrigine (Lamotrigine 100 Mg Tab) 150 mg PO QAM DERRICK Stop: 02/26/23 10:59 Last Admin: 01/28/23 09:06 Dose: 150 mg Magnesium Hydroxide (Magnesium Hydroxide Susp 30 Ml Udc) 30 ml PO DAILY PRN PRN Reason: Constipation Stop: 02/25/23 20:17 Nitrofurantoin Macrocrystals (Nitrofurantoin Monohydrate 100 Mg Cap) 100 mg PO BID DERRICK Stop: 01/31/23 20:59 Last Admin: 01/28/23 21:46 Dose: 100 mg Pantoprazole Sodium (Pantoprazole 40 Mg Tab) 40 mg PO DAILY DERRICK Stop: 02/26/23 10:59 Last Admin: 01/28/23 09:07 Dose: 40 mg Sodium Chloride (Sodium Chloride 0.65% Na Soln 45 Ml ([place])) 1 - 2 sprays NA PRN PRN PRN Reason: Nasal Dryness/Congestion Stop: 02/25/23 20:17 Venlafaxine HCl (Venlafaxine Hcl Xr 75 Mg Capxr) 75 mg PO QAM DERRICK Stop: 02/28/23 08:59 Vitamin D (Cholecalciferol 1,000 Units 25 Mcg Tab) 1,000 units PO QAM DERRICK Stop: 02/26/23 11:29 Last Admin: 01/28/23 09:06 Dose: 1,000 units Mental Health & Subst Abuse Tx Psychiatrist [facility]'s Date Of Appointment With Psychiatric Provider: 02/09 Time of Appointment with Psychiatrist: 1530 Therapist Name of Therapist: Endy Therapist's Time of Therapist Appointment: 01/29 at 1700;02/02 at 1615 Safety Trainer Name of Safety Trainer: Denies Post Discharge Appointments Primary Care Physician Name Of Family Doctor/PCP: Dr Casper Primary Care Contact Information Discharge Discharge Address: [address] [place] [id number]
[2023-01-29] MEDS: lamoTRIgine 100 MG TAB PO SCH (09:29)
[2023-01-29] MEDS: CHOLECALCIFEROL 1,000 UNITS 25 MCG TAB PO SCH (09:29)
[2023-01-29] MEDS: PANTOprazole 40 MG TAB PO SCH (09:29)
[2023-01-29] MEDS: NITROFURANTOIN MONOHYDRATE 100 MG CAP PO SCH ×2 (09:30→21:05)
[2023-01-29] MEDS: VENLAFAXINE HCL XR 75 MG CAPXR PO SCH (09:30)
[2023-01-29] MEDS ORDERED: ONDANSETRON 4 MG OD TAB PO PRN (13:15)
[2023-01-29] MEDS: ARIPiprazole 10 MG TAB PO SCH (21:05)
[2023-01-29] MEDS: hydrOXYzine HCl 25 MG TAB PO PRN (21:09)
[2023-01-29] MEDS: ACETAMINOPHEN 325 MG TAB PO PRN (21:09)
[2023-01-30] MEDS: VENLAFAXINE HCL XR 75 MG CAPXR PO SCH (08:47)
[2023-01-30] MEDS: lamoTRIgine 100 MG TAB PO SCH (08:48)
[2023-01-30] MEDS: CHOLECALCIFEROL 1,000 UNITS 25 MCG TAB PO SCH (08:48)
[2023-01-30] MEDS: NITROFURANTOIN MONOHYDRATE 100 MG CAP PO SCH ×2 (08:48→21:55)
[2023-01-30] MEDS: PANTOprazole 40 MG TAB PO SCH (08:48)
--- NOTE | 2023-01-30 08:56 | Psychiatric Progress Note ---
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 Diagnostically consistent with episode of bipolar depression in context of recent stressors including breakup and move. She is deemed in need of psychiatric hospitalization for diagnostic clarification, safety and stabilization, medication management and development of further coping skills. 01/30/2023: Ongoing severe depression with SI but less tearfulness today and SI is reducing a bit in frequency though she's not sure what to attribute this slight improvement to. No further GI side effects today, she is agreeable to ongoing titration of Effexor XR. Overall, I spent a total of 35 minutes including review of chart records, review of labwork, direct evaluation of the patient at bedside, counseling the patient, ordering medication, discussion of the patient at treatment team and documentation in the electronic health record. (1) Depression with suicidal ideation: (2) Acute UTI: (3) Bipolar disorder with severe depression: Plan 01/30/2023: Increase Effexor XR to 112.5mg starting tomorrow morning. 01/29/2023: Increase to Effexor XR 75mg qd 01/28/2023: Started Effexor XR 37.5mg daily, will increase to 75mg qd tomorrow 01/27/2023: The patient was admitted to the [facility] ([facility]) on q15 min checks (behavioral with suicide precautions) for safety. The patient will participate in group, recreational, and milieu therapies and will be offered additional individual and family sessions as clinically appropriate. -continue with Lamictal and abilify; lamictal dose could be titrated over time but felt that an antidepressant would be most helpful at this point given severity of depression -escitalopram or venlafaxine -Fasting lipid panel, glucose and HbA1c Inventory Assets Strengths: supportive relationships, willing to get treatment Needs: safety and stabilization, medication adjustment, additional coping skills, increased outpatient services Suicide Risk Level Suicide Risk Level: High-Moderate (q15 min suicide checks) (severe depression with SI with plan prior to admission but feels safe in the hospital, able to safety contract and agrees to let nursing/staff know should they develop plan, intent or feel unable to remain safe.) Suicide Risk Level Comments: Risk Factors Assessment : Yes Do You Have Access To A Gun?: No Mental Health Diagnoses: Yes Previous Attempt: Yes Family History of Suicide: No Previous Psychiatric Hospitalization: Yes Protective Factors Assessment Responsible for Young Children: Yes Employed: Yes ([employer] Supportive Family: Yes Good Rapport with Provider: Yes Interval History Identifying Information MARIANGEL ORTIZ is a 32-year-old F who currently lives in [place] with her parents and her children half the time, has a history of BPAD and possible ADHD, and was admitted on 01/26/23 20:18 on a 201 voluntary commitment for SI with plan. Chief Complaint "Not bad". Review of Systems Sleep Information Total Hours of Sleep: 6.75 Meal Information Percent Meal Consumed - Breakfast: 0 Percent Meal Consumed - Lunch: 75 Percent Meal Consumed - Dinner: 75 Nutrition Comment: per paper meal log Subjective Subjective Patient was seen & assessed and interval progress reviewed with treatment team nursing and social work. Missed afternoon groups yesterday due to stomach issues but then was able to attend evening groups and watched a movie with peers. Today is no longer having any stomach pain. Feels her mood is not as depressed, SI is a little less frequent today, she's not sure why. She's agreeable with continuing the Effexor XR titration. Physical Exam Psychiatric Orientation: alert and oriented x 3 Apperance: appropriately dressed and appropriately groomed Eye Contact: good eye contact Motor Behavior: no abnormal motor movements Speech: normal rate/rhythm/volume of speech Affect: + depressed affect and + flat affect Mood: + depressed mood and + anxious mood Thought Process: goal directed thought process Thought Content: reality based without delusions and + hopelessness Suicidal Thoughts: denies suicidal intent; + reports suicidal thoughts and + reports suicidal plan (none for hospital, outside to crash car) Homicidal Thoughts: denies homicidal thoughts Hallucinations: no auditory hallucinations and no visual hallucinations Cognition: recent memory grossly intact, remote memory grossly intact, attention grossly intact and language grossly intact Estimated Intelligence: consistent with education level Insight: + fair insight Judgment: + fair judgement Vital Signs (Past 24 Hours) Last Vital Signs Temp 36.3 C L 01/30/23 06:00 Pulse 94 H 01/30/23 06:25 Resp 18 01/30/23 06:00 BP 94/61 L 01/30/23 06:25 Pulse Ox 99 01/27/23 06:00 O2 Del Method Room Air 01/27/23 06:00 Results & Data ([facility]) Current Inpatient Medications Current Inpatient Medications: Current Inpatient Medications Acetaminophen (Acetaminophen 325 Mg Tab) 650 mg PO Q4H PRN PRN Reason: Headache or Minor Fever Stop: 02/25/23 20:17 Last Admin: 01/29/23 21:09 Dose: 650 mg Al Hydrox/Mg Hydrox/Simethicone (Aluminum/Magnesium Susp 30 Ml Udc) 30 ml PO Q4H PRN PRN Reason: GI Upset Stop: 02/25/23 20:17 Aripiprazole (Aripiprazole 10 Mg Tab) 20 mg PO HS DERRICK Stop: 02/25/23 21:59 Last Admin: 01/29/23 21:05 Dose: 20 mg Bismuth Subsalicylate (Bismuth Subsalicylate Liqd 236 Ml) 15 ml PO PRN PRN PRN Reason: Loose Stool Stop: 02/25/23 20:17 Hydroxyzine HCl (Hydroxyzine Hcl 10 Mg Tab) 10 mg PO Q4H PRN PRN Reason: Anxiety Stop: 02/25/23 20:17 Hydroxyzine HCl (Hydroxyzine Hcl 25 Mg Tab) 25 mg PO HSZ PRN PRN Reason: Insomnia Stop: 02/25/23 20:17 Last Admin: 01/29/23 21:09 Dose: 25 mg Lamotrigine (Lamotrigine 100 Mg Tab) 150 mg PO QAM DERRICK Stop: 02/26/23 10:59 Last Admin: 01/30/23 08:48 Dose: 150 mg Magnesium Hydroxide (Magnesium Hydroxide Susp 30 Ml Udc) 30 ml PO DAILY PRN PRN Reason: Constipation Stop: 02/25/23 20:17 Nitrofurantoin Macrocrystals (Nitrofurantoin Monohydrate 100 Mg Cap) 100 mg PO BID DERRICK Stop: 01/31/23 20:59 Last Admin: 01/30/23 08:48 Dose: 100 mg Ondansetron HCl (Ondansetron 4 Mg Od Tab) 4 mg PO Q8H PRN PRN Reason: nausea Stop: 02/28/23 13:14 Last Admin: 01/29/23 13:20 Dose: 4 mg Pantoprazole Sodium (Pantoprazole 40 Mg Tab) 40 mg PO DAILY DERRICK Stop: 02/26/23 10:59 Last Admin: 01/30/23 08:48 Dose: 40 mg Sodium Chloride (Sodium Chloride 0.65% Na Soln 45 Ml ([place])) 1 - 2 sprays NA PRN PRN PRN Reason: Nasal Dryness/Congestion Stop: 02/25/23 20:17 Venlafaxine HCl (Venlafaxine Hcl Xr 75 Mg Capxr) 75 mg PO QAM DERRICK Stop: 02/28/23 08:59 Last Admin: 01/30/23 08:47 Dose: 75 mg Vitamin D (Cholecalciferol 1,000 Units 25 Mcg Tab) 1,000 units PO QAM DERRICK Stop: 02/26/23 11:29 Last Admin: 01/30/23 08:48 Dose: 1,000 units Mental Health & Subst Abuse Tx Psychiatrist Name of Psychiatrist: Ramu Carver Psychiatrist's Date Of Appointment With Psychiatric Provider: 02/09/23 Time of Appointment with Psychiatrist: 3:15 PM Psychiatric Appointment Comment: [address] [place] [address] Therapist Name of Therapist: Elvis Valle Therapist's (cell) Date of Therapist Appointment: 02/05/23 Time of Therapist Appointment: 5:00 PM Therapy Appointment Comment: [id number], [place] [address] Automotive Manufacturer Name of Automotive Manufacturer: Denies Post Discharge Appointments Primary Care Physician Name Of Family Doctor/PCP: Dr Loera Primary Care Provider Appointment Comment: Please follow up as needed. Contact Information Discharge Discharge Address: [address] [place], [place] [address] [address]
[2023-01-30] MEDS: ARIPiprazole 10 MG TAB PO SCH (21:56)
[2023-01-30] MEDS: hydrOXYzine HCl 25 MG TAB PO PRN (21:59)
--- NOTE | 2023-01-31 08:52 | Psychiatric Progress Note ---
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 Diagnostically consistent with episode of bipolar depression in context of recent stressors including breakup and move. She is deemed in need of psychiatric hospitalization for diagnostic clarification, safety and stabilization, medication management and development of further coping skills. 01/31/2023: Ongoing depression with SI but intensity and frequency of SI starting to reduce a bit, still present this AM. Tolerating higher dose of Effexor XR today. Possible akathisia, though anxiety seems most likely, related to abilify so she would like to try propranolol prn if these symptoms re-occur. Reviewed risk factors/side effects with propranolol including syncope, dizziness, falls, need to move slowly from one position to another, that medication cannot be given if her BP is too low. She understands and consents to propranolol as option for prn. Overall, I spent a total of 28 minutes including review of chart records, review of labwork, direct evaluation of the patient at bedside, counseling the patient, ordering medication, discussion of the patient at treatment team and documentation in the electronic health record. (1) Depression with suicidal ideation: (2) Acute UTI: (3) Bipolar disorder with severe depression: Plan 01/31/2023: Effexor XR 112.5mg qd, continue other medications and tx plan. Propranolol 10mg daily prn for akathisia/anxiety. 01/30/2023: Increase Effexor XR to 112.5mg starting tomorrow morning. 01/29/2023: Increase to Effexor XR 75mg qd 01/28/2023: Started Effexor XR 37.5mg daily, will increase to 75mg qd tomorrow 01/27/2023: The patient was admitted to the [facility] on q15 min checks (behavioral with suicide precautions) for safety. The patient will participate in group, recreational, and milieu therapies and will be offered additional individual and family sessions as clinically appropriate. -continue with Lamictal and abilify; lamictal dose could be titrated over time but felt that an antidepressant would be most helpful at this point given severity of depression -escitalopram or venlafaxine -Fasting lipid panel, glucose and HbA1c Inventory Assets Strengths: supportive relationships, willing to get treatment Needs: safety and stabilization, medication adjustment, additional coping skills, increased outpatient services Suicide Risk Level Suicide Risk Level: High-Moderate (q15 min suicide checks) (severe depression with SI with plan prior to admission but feels safe in the hospital, able to safety contract and agrees to let nursing/staff know should they develop plan, intent or feel unable to remain safe.) Suicide Risk Level Comments: Risk Factors Assessment : Yes Do You Have Access To A Gun?: No Mental Health Diagnoses: Yes Previous Attempt: Yes Family History of Suicide: No Previous Psychiatric Hospitalization: Yes Protective Factors Assessment Responsible for Young Children: Yes Employed: Yes ([employer] Supportive Family: Yes Good Rapport with Provider: Yes Interval History Identifying Information MARIANGEL ORTIZ is a 32-year-old F who currently lives in [place] with her parents and her children half the time, has a history of BPAD and possible ADHD, and was admitted on 01/26/23 20:18 on a 201 voluntary commitment for SI with plan. Chief Complaint "A little better". Review of Systems Sleep Information Total Hours of Sleep: 6 Meal Information Percent Meal Consumed - Breakfast: 50 Percent Meal Consumed - Lunch: 100 Percent Meal Consumed - Dinner: 100 Nutrition Comment: Subjective Subjective Patient was seen & assessed and interval progress reviewed with treatment team nursing and social work. Sad last evening after face timing with her daughters then spoke with her ex-boyfriend. Today reports her mood is "a little better" due to some lessening of SI today though still with SI this morning until she got out of bed and was distracted by activities/groups. Some mild stomach discomfort but denies nausea nor issues with eating. She wonders if the feeling she has to sometimes need to move her leg is due to anxiety or could be side effect like akathisia from abilify. Discussed that typically severity of akathisia would be such that she'd struggle throughout the day so more likely anxiety but option to have prn propranolol available if symptoms re-occur. Physical Exam Psychiatric Orientation: alert and oriented x 3 Apperance: appropriately dressed and appropriately groomed Eye Contact: good eye contact Motor Behavior: no abnormal motor movements Speech: normal rate/rhythm/volume of speech Affect: + depressed affect and + constricted affect Mood: + depressed mood and + anxious mood Thought Process: goal directed thought process Thought Content: reality based without delusions and + hopelessness Suicidal Thoughts: denies suicidal intent; + reports suicidal thoughts and + reports suicidal plan (none for hospital, outside to crash car) Homicidal Thoughts: denies homicidal thoughts Hallucinations: no auditory hallucinations and no visual hallucinations Cognition: recent memory grossly intact, remote memory grossly intact, attention grossly intact and language grossly intact Estimated Intelligence: consistent with education level Insight: + fair insight Judgment: + fair judgement Vital Signs (Past 24 Hours) Last Vital Signs Temp 36.7 C 01/31/23 06:00 Pulse 82 01/31/23 06:00 Resp 16 01/31/23 06:00 BP 90/61 L 01/31/23 06:39 Pulse Ox 99 01/31/23 06:00 O2 Del Method Room Air 01/31/23 06:00 Results & Data ([facility]) Current Inpatient Medications Current Inpatient Medications: Current Inpatient Medications Acetaminophen (Acetaminophen 325 Mg Tab) 650 mg PO Q4H PRN PRN Reason: Headache or Minor Fever Stop: 02/25/23 20:17 Last Admin: 01/29/23 21:09 Dose: 650 mg Al Hydrox/Mg Hydrox/Simethicone (Aluminum/Magnesium Susp 30 Ml Udc) 30 ml PO Q4H PRN PRN Reason: GI Upset Stop: 02/25/23 20:17 Aripiprazole (Aripiprazole 10 Mg Tab) 20 mg PO HS DERRICK Stop: 02/25/23 21:59 Last Admin: 01/30/23 21:56 Dose: 20 mg Bismuth Subsalicylate (Bismuth Subsalicylate Liqd 236 Ml) 15 ml PO PRN PRN PRN Reason: Loose Stool Stop: 02/25/23 20:17 Hydroxyzine HCl (Hydroxyzine Hcl 10 Mg Tab) 10 mg PO Q4H PRN PRN Reason: Anxiety Stop: 02/25/23 20:17 Hydroxyzine HCl (Hydroxyzine Hcl 25 Mg Tab) 25 mg PO HSZ PRN PRN Reason: Insomnia Stop: 02/25/23 20:17 Last Admin: 01/30/23 21:59 Dose: 25 mg Lamotrigine (Lamotrigine 100 Mg Tab) 150 mg PO QAM DERRICK Stop: 02/26/23 10:59 Last Admin: 01/30/23 08:48 Dose: 150 mg Magnesium Hydroxide (Magnesium Hydroxide Susp 30 Ml Udc) 30 ml PO DAILY PRN PRN Reason: Constipation Stop: 02/25/23 20:17 Nitrofurantoin Macrocrystals (Nitrofurantoin Monohydrate 100 Mg Cap) 100 mg PO BID DERRICK Stop: 01/31/23 20:59 Last Admin: 01/30/23 21:55 Dose: 100 mg Ondansetron HCl (Ondansetron 4 Mg Od Tab) 4 mg PO Q8H PRN PRN Reason: nausea Stop: 02/28/23 13:14 Last Admin: 01/29/23 13:20 Dose: 4 mg Pantoprazole Sodium (Pantoprazole 40 Mg Tab) 40 mg PO DAILY DERRICK Stop: 02/26/23 10:59 Last Admin: 01/30/23 08:48 Dose: 40 mg Sodium Chloride (Sodium Chloride 0.65% Na Soln 45 Ml ([place])) 1 - 2 sprays NA PRN PRN PRN Reason: Nasal Dryness/Congestion Stop: 02/25/23 20:17 Venlafaxine HCl (Venlafaxine Hcl Xr 37.5 Mg Capxr) 112.5 mg PO QAM DERRICK Stop: 03/02/23 08:59 Vitamin D (Cholecalciferol 1,000 Units 25 Mcg Tab) 1,000 units PO QAM DERRICK Stop: 02/26/23 11:29 Last Admin: 01/30/23 08:48 Dose: 1,000 units Mental Health & Subst Abuse Tx Psychiatrist Name of Psychiatrist: Ramu Carver Psychiatrist's Date Of Appointment With Psychiatric Provider: 02/09/23 Time of Appointment with Psychiatrist: 3:15 PM Psychiatric Appointment Comment: [address] [place] [address] Therapist Name of Therapist: Elvis Valle Therapist's (cell) Date of Therapist Appointment: 02/05/23 Time of Therapist Appointment: 5:00 PM Therapy Appointment Comment: [id number] [facility] [id number], [place] [address] Technical Sales Engineer Name of Technical Sales Engineer: Denies Post Discharge Appointments Primary Care Physician Name Of Family Doctor/PCP: Dr Loera Primary Care Provider Appointment Comment: Please follow up as needed. Contact Information [place] Discharge [facility] [address] [facility] [place] [address]
[2023-01-31] MEDS: PANTOprazole 40 MG TAB PO SCH (09:33)
[2023-01-31] MEDS: VENLAFAXINE HCL XR 37.5 MG CAPXR PO SCH (09:34)
[2023-01-31] MEDS: CHOLECALCIFEROL 1,000 UNITS 25 MCG TAB PO SCH (09:34)
[2023-01-31] MEDS: lamoTRIgine 100 MG TAB PO SCH (09:34)
[2023-01-31] MEDS: NITROFURANTOIN MONOHYDRATE 100 MG CAP PO SCH (09:34)
[2023-01-31] MEDS ORDERED: PROPRANOLOL HCL 10 MG TAB PO PRN (16:01)
[2023-01-31] MEDS: ARIPiprazole 10 MG TAB PO SCH (21:04)
[2023-01-31] MEDS: hydrOXYzine HCl 25 MG TAB PO PRN (21:05)
--- NOTE | 2023-02-01 08:52 | Psychiatric Progress Note ---
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 Diagnostically consistent with episode of bipolar depression in context of recent stressors including breakup and move. She is deemed in need of psychiatric hospitalization for diagnostic clarification, safety and stabilization, medication management and development of further coping skills. 02/01/2023: Ongoing depression, SI lessening for first day. Headache today but otherwise tolerating Effexor XR at higher dose. Overall, I spent a total of 25 minutes including review of chart records, review of labwork, direct evaluation of the patient at bedside, counseling the patient, ordering medication, discussion of the patient at treatment team and documentation in the electronic health record. (1) Depression with suicidal ideation: (2) Acute UTI: (3) Bipolar disorder with severe depression: Plan 02/01/2023: Continue current medications and tx plan. 01/31/2023: Effexor XR 112.5mg qd, continue other medications and tx plan. Propranolol 10mg daily prn for akathisia/anxiety. 01/30/2023: Increase Effexor XR to 112.5mg starting tomorrow morning. 01/29/2023: Increase to Effexor XR 75mg qd 01/28/2023: Started Effexor XR 37.5mg daily, will increase to 75mg qd tomorrow 01/27/2023: The patient was admitted to the [facility] ([facility]) on q15 min checks (behavioral with suicide precautions) for safety. The patient will participate in group, recreational, and milieu therapies and will be offered additional individual and family sessions as clinically appropriate. -continue with Lamictal and abilify; lamictal dose could be titrated over time but felt that an antidepressant would be most helpful at this point given severity of depression -escitalopram or venlafaxine -Fasting lipid panel, glucose and HbA1c Inventory Assets Strengths: supportive relationships, willing to get treatment Needs: safety and stabilization, medication adjustment, additional coping skills, increased outpatient services Suicide Risk Level Suicide Risk Level: Moderate (q15 min suicide checks) (severe depression with SI with plan prior to admission but feels safe in the hospital, able to safety contract and agrees to let nursing/staff know should they develop plan, intent or feel unable to remain safe.) Suicide Risk Level Comments: Risk Factors Assessment : Yes Do You Have Access To A Gun?: No Mental Health Diagnoses: Yes Previous Attempt: Yes Family History of Suicide: No Previous Psychiatric Hospitalization: Yes Protective Factors Assessment Responsible for Young Children: Yes Employed: Yes ([employer] ([place] Supportive Family: Yes Good Rapport with Provider: Yes Interval History Identifying Information MARIANGEL ORTIZ is a 32-year-old F who currently lives in [place] with her parents and her children half the time, has a history of BPAD and possible ADHD, and was admitted on 01/26/23 20:18 on a 201 voluntary commitment for SI with plan. Chief Complaint "I feel a little better". Review of Systems Sleep Information Total Hours of Sleep: 6.75 Meal Information Percent Meal Consumed - Breakfast: 100 Percent Meal Consumed - Lunch: 100 Percent Meal Consumed - Dinner: 100 Subjective Subjective Patient was seen & assessed and interval progress reviewed with treatment team nursing and social work. Attending groups. Rated mood a 4 related to feeling remorseful and guilty for missing her daughter's first day of school. Did not require any prn propranolol. Today reports her mood is a little better, she isn't sure why except that she's "not as down". SI is lessening. No side effects from venlafaxine except for headache, she prefers to stay at current dose for another day. Physical Exam Psychiatric Orientation: alert and oriented x 3 Apperance: appropriately dressed and appropriately groomed Eye Contact: good eye contact Motor Behavior: no abnormal motor movements Speech: normal rate/rhythm/volume of speech Affect: + depressed affect and + constricted affect Mood: + depressed mood and + anxious mood Thought Process: goal directed thought process Thought Content: reality based without delusions and + hopelessness Suicidal Thoughts: denies suicidal plan and denies suicidal intent; + reports suicidal thoughts (intermittent) Homicidal Thoughts: denies homicidal thoughts Hallucinations: no auditory hallucinations and no visual hallucinations Cognition: recent memory grossly intact, remote memory grossly intact, attention grossly intact and language grossly intact Estimated Intelligence: consistent with education level Insight: + fair insight Judgment: + fair judgement Vital Signs (Past 24 Hours) Last Vital Signs Temp 36.7 C 02/01/23 06:00 Pulse 85 02/01/23 06:40 Resp 16 02/01/23 06:00 BP 107/72 02/01/23 06:40 Pulse Ox 99 01/31/23 06:00 O2 Del Method Room Air 01/31/23 06:00 Results & Data ([facility]) Current Inpatient Medications Current Inpatient Medications: Current Inpatient Medications Acetaminophen (Acetaminophen 325 Mg Tab) 650 mg PO Q4H PRN PRN Reason: Headache or Minor Fever Stop: 02/25/23 20:17 Last Admin: 01/29/23 21:09 Dose: 650 mg Al Hydrox/Mg Hydrox/Simethicone (Aluminum/Magnesium Susp 30 Ml Udc) 30 ml PO Q4H PRN PRN Reason: GI Upset Stop: 02/25/23 20:17 Aripiprazole (Aripiprazole 10 Mg Tab) 20 mg PO HS DERRICK Stop: 02/25/23 21:59 Last Admin: 01/31/23 21:04 Dose: 20 mg Bismuth Subsalicylate (Bismuth Subsalicylate Liqd 236 Ml) 15 ml PO PRN PRN PRN Reason: Loose Stool Stop: 02/25/23 20:17 Hydroxyzine HCl (Hydroxyzine Hcl 10 Mg Tab) 10 mg PO Q4H PRN PRN Reason: Anxiety Stop: 02/25/23 20:17 Hydroxyzine HCl (Hydroxyzine Hcl 25 Mg Tab) 25 mg PO HSZ PRN PRN Reason: Insomnia Stop: 02/25/23 20:17 Last Admin: 01/31/23 21:05 Dose: 25 mg Lamotrigine (Lamotrigine 100 Mg Tab) 150 mg PO QAM DERRICK Stop: 02/26/23 10:59 Last Admin: 01/31/23 09:34 Dose: 150 mg Magnesium Hydroxide (Magnesium Hydroxide Susp 30 Ml Udc) 30 ml PO DAILY PRN PRN Reason: Constipation Stop: 02/25/23 20:17 Ondansetron HCl (Ondansetron 4 Mg Od Tab) 4 mg PO Q8H PRN PRN Reason: nausea Stop: 02/28/23 13:14 Last Admin: 01/29/23 13:20 Dose: 4 mg Pantoprazole Sodium (Pantoprazole 40 Mg Tab) 40 mg PO DAILY DERRICK Stop: 02/26/23 10:59 Last Admin: 01/31/23 09:33 Dose: 40 mg Propranolol HCl (Propranolol Hcl 10 Mg Tab) 10 mg PO DAILY PRN PRN Reason: akathisia/panic attack Stop: 03/03/23 08:59 Sodium Chloride (Sodium Chloride 0.65% Na Soln 45 Ml ([place])) 1 - 2 sprays NA PRN PRN PRN Reason: Nasal Dryness/Congestion Stop: 02/25/23 20:17 Venlafaxine HCl (Venlafaxine Hcl Xr 37.5 Mg Capxr) 112.5 mg PO QAM DERRICK Stop: 03/02/23 08:59 Last Admin: 01/31/23 09:34 Dose: 112.5 mg Vitamin D (Cholecalciferol 1,000 Units 25 Mcg Tab) 1,000 units PO QAM DERRICK Stop: 02/26/23 11:29 Last Admin: 01/31/23 09:34 Dose: 1,000 units Mental Health & Subst Abuse Tx Psychiatrist Name of Psychiatrist: [facility] Psychiatrist's Date Of Appointment With Psychiatric Provider: 02/09/23 Time of Appointment with Psychiatrist: 3:15 PM Psychiatric Appointment Comment: [address] [place] [address] Therapist Name of Therapist: Elvis Valle Therapist's (cell) Date of Therapist Appointment: 02/05/23 Time of Therapist Appointment: 5:00 PM Therapy Appointment Comment: [phone], [place] [address] Postbed Stitcher Name of Postbed Stitcher: Denies Post Discharge Appointments Primary Care Physician Name Of Family Doctor/PCP: Dr Loera Primary Care Provider Appointment Comment: Please follow up as needed. Contact Information Discharge Discharge Address: [address] [place] [address]
[2023-02-01] MEDS: CHOLECALCIFEROL 1,000 UNITS 25 MCG TAB PO SCH (09:16)
[2023-02-01] MEDS: lamoTRIgine 100 MG TAB PO SCH (09:16)
[2023-02-01] MEDS: VENLAFAXINE HCL XR 37.5 MG CAPXR PO SCH (09:17)
[2023-02-01] MEDS: PANTOprazole 40 MG TAB PO SCH (09:17)
[2023-02-01] MEDS: ACETAMINOPHEN 325 MG TAB PO PRN (21:23)
[2023-02-01] MEDS: hydrOXYzine HCl 25 MG TAB PO PRN (21:24)
[2023-02-01] MEDS: ARIPiprazole 10 MG TAB PO SCH (21:25)
--- NOTE | 2023-02-02 08:55 | Psychiatric Progress Note ---
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 Diagnostically consistent with episode of bipolar depression in context of recent stressors including breakup and move. She is deemed in need of psychiatric hospitalization for diagnostic clarification, safety and stabilization, medication management and development of further coping skills. 02/02/2023: Ongoing depression but with slow improvement, she remains nervous about being out of the hospital but is starting to feel better about this idea, Wants to aim for family meeting on Sunday, prefers to stay at current effexor dose for now. Overall, I spent a total of 25 minutes including review of chart records, review of labwork, direct evaluation of the patient at bedside, counseling the patient, ordering medication, discussion of the patient at treatment team and documentation in the electronic health record. (1) Depression with suicidal ideation: (2) Acute UTI: (3) Bipolar disorder with severe depression: Plan 02/02/2023: Continue current medications and tx plan. needs family meeting 02/01/2023: Continue current medications and tx plan. 01/31/2023: Effexor XR 112.5mg qd, continue other medications and tx plan. Propranolol 10mg daily prn for akathisia/anxiety. 01/30/2023: Increase Effexor XR to 112.5mg starting tomorrow morning. 01/29/2023: Increase to Effexor XR 75mg qd 01/28/2023: Started Effexor XR 37.5mg daily, will increase to 75mg qd tomorrow 01/27/2023: The patient was admitted to the [facility] ([facility]) on q15 min checks (behavioral with suicide precautions) for safety. The patient will participate in group, recreational, and milieu therapies and will be offered additional individual and family sessions as clinically appropriate. -continue with Lamictal and abilify; lamictal dose could be titrated over time but felt that an antidepressant would be most helpful at this point given severity of depression -escitalopram or venlafaxine -Fasting lipid panel, glucose and HbA1c Inventory Assets Strengths: supportive relationships, willing to get treatment Needs: safety and stabilization, medication adjustment, additional coping skills, increased outpatient services Suicide Risk Level Suicide Risk Level: Moderate (q15 min suicide checks) (severe depression with SI with plan prior to admission but feels safe in the hospital, able to safety contract and agrees to let nursing/staff know should they develop plan, intent or feel unable to remain safe.) Suicide Risk Level Comments: Risk Factors Assessment : Yes Do You Have Access To A Gun?: No Mental Health Diagnoses: Yes Previous Attempt: Yes Family History of Suicide: No Previous Psychiatric Hospitalization: Yes Protective Factors Assessment Responsible for Young Children: Yes Employed: Yes ([employer] ([employer])) Supportive Family: Yes Good Rapport with Provider: Yes Interval History Identifying Information MARIANGEL ORTIZ is a 32-year-old F who currently lives in [place] with her parents and her children half the time, has a history of BPAD and possible ADHD, and was admitted on 01/26/23 20:18 on a 201 voluntary commitment for SI with plan. Chief Complaint "I think maybe by Sunday". Review of Systems Sleep Information Total Hours of Sleep: 6.5 Meal Information Percent Meal Consumed - Breakfast: 100 Percent Meal Consumed - Lunch: 75 Percent Meal Consumed - Dinner: 100 Subjective Subjective Patient was seen & assessed and interval progress reviewed with treatment team nursing and social work. Now considering going back to living with her ex- boyfriend after a good phone conversation. Still having some depression but feels overall mood is getting better. Still having a headache today so prefers to stay at current dose of Effexor XR. Remains nervous about being out of the hospital and being able to remain safe. Physical Exam Psychiatric Orientation: alert and oriented x 3 Apperance: appropriately dressed and appropriately groomed Eye Contact: good eye contact Motor Behavior: no abnormal motor movements Speech: normal rate/rhythm/volume of speech Affect: + depressed affect and + constricted affect Mood: + depressed mood and + anxious mood Thought Process: goal directed thought process Thought Content: reality based without delusions Suicidal Thoughts: denies suicidal plan and denies suicidal intent; + reports suicidal thoughts (intermittent) Homicidal Thoughts: denies homicidal thoughts Hallucinations: no auditory hallucinations and no visual hallucinations Cognition: recent memory grossly intact, remote memory grossly intact, attention grossly intact and language grossly intact Estimated Intelligence: consistent with education level Insight: + fair insight Judgment: + fair judgement Vital Signs (Past 24 Hours) Last Vital Signs Temp 36.9 C 02/02/23 06:46 Pulse 92 H 02/02/23 06:46 Resp 16 02/02/23 06:46 BP 81/54 L 02/02/23 06:46 Pulse Ox 99 01/31/23 06:00 O2 Del Method Room Air 01/31/23 06:00 Results & Data ([facility]) Current Inpatient Medications Current Inpatient Medications: Current Inpatient Medications Acetaminophen (Acetaminophen 325 Mg Tab) 650 mg PO Q4H PRN PRN Reason: Headache or Minor Fever Stop: 02/25/23 20:17 Last Admin: 02/01/23 21:23 Dose: 650 mg Al Hydrox/Mg Hydrox/Simethicone (Aluminum/Magnesium Susp 30 Ml Udc) 30 ml PO Q4H PRN PRN Reason: GI Upset Stop: 02/25/23 20:17 Aripiprazole (Aripiprazole 10 Mg Tab) 20 mg PO HS DERRICK Stop: 02/25/23 21:59 Last Admin: 02/01/23 21:25 Dose: 20 mg Bismuth Subsalicylate (Bismuth Subsalicylate Liqd 236 Ml) 15 ml PO PRN PRN PRN Reason: Loose Stool Stop: 02/25/23 20:17 Hydroxyzine HCl (Hydroxyzine Hcl 10 Mg Tab) 10 mg PO Q4H PRN PRN Reason: Anxiety Stop: 02/25/23 20:17 Hydroxyzine HCl (Hydroxyzine Hcl 25 Mg Tab) 25 mg PO HSZ PRN PRN Reason: Insomnia Stop: 02/25/23 20:17 Last Admin: 02/01/23 21:24 Dose: 25 mg Lamotrigine (Lamotrigine 100 Mg Tab) 150 mg PO QAM DERRICK Stop: 02/26/23 10:59 Last Admin: 02/01/23 09:16 Dose: 150 mg Magnesium Hydroxide (Magnesium Hydroxide Susp 30 Ml Udc) 30 ml PO DAILY PRN PRN Reason: Constipation Stop: 02/25/23 20:17 Ondansetron HCl (Ondansetron 4 Mg Od Tab) 4 mg PO Q8H PRN PRN Reason: nausea Stop: 02/28/23 13:14 Last Admin: 01/29/23 13:20 Dose: 4 mg Pantoprazole Sodium (Pantoprazole 40 Mg Tab) 40 mg PO DAILY DERRICK Stop: 02/26/23 10:59 Last Admin: 02/01/23 09:17 Dose: 40 mg Propranolol HCl (Propranolol Hcl 10 Mg Tab) 10 mg PO DAILY PRN PRN Reason: akathisia/panic attack Stop: 03/03/23 08:59 Sodium Chloride (Sodium Chloride 0.65% Na Soln 45 Ml ([place])) 1 - 2 sprays NA PRN PRN PRN Reason: Nasal Dryness/Congestion Stop: 02/25/23 20:17 Venlafaxine HCl (Venlafaxine Hcl Xr 37.5 Mg Capxr) 112.5 mg PO QAM DERRICK Stop: 03/02/23 08:59 Last Admin: 02/01/23 09:17 Dose: 112.5 mg Vitamin D (Cholecalciferol 1,000 Units 25 Mcg Tab) 1,000 units PO QAM DERRICK Stop: 02/26/23 11:29 Last Admin: 02/01/23 09:16 Dose: 1,000 units Mental Health & Subst Abuse Tx Psychiatrist Name of Psychiatrist: [facility] Psychiatrist's Date Of Appointment With Psychiatric Provider: 02/09/23 Time of Appointment with Psychiatrist: 3:15 PM Psychiatric Appointment Comment: [address] [place] [address] Therapist Name of Therapist: Elvis Valle Therapist's (cell) Date of Therapist Appointment: 02/05/23 Time of Therapist Appointment: 5:00 PM Therapy Appointment Comment: [phone], [place] [address] Video Game Programmer Name of Video Game Programmer: Denies Post Discharge Appointments Primary Care Physician Name Of Family Doctor/PCP: Dr Loera Primary Care Provider Appointment Comment: Please follow up as needed. Contact Information Discharge Discharge Address: [address] [place] [id number]
[2023-02-02] MEDS: CHOLECALCIFEROL 1,000 UNITS 25 MCG TAB PO SCH (09:09)
[2023-02-02] MEDS: VENLAFAXINE HCL XR 37.5 MG CAPXR PO SCH (09:09)
[2023-02-02] MEDS: PANTOprazole 40 MG TAB PO SCH (09:09)
[2023-02-02] MEDS: lamoTRIgine 100 MG TAB PO SCH (09:10)
[2023-02-02] MEDS: hydrOXYzine HCl 25 MG TAB PO PRN (21:27)
[2023-02-02] MEDS: ARIPiprazole 10 MG TAB PO SCH (21:28)
[2023-02-03] MEDS: VENLAFAXINE HCL XR 37.5 MG CAPXR PO SCH (09:13)
[2023-02-03] MEDS: PANTOprazole 40 MG TAB PO SCH (09:13)
[2023-02-03] MEDS: lamoTRIgine 100 MG TAB PO SCH (09:13)
[2023-02-03] MEDS: CHOLECALCIFEROL 1,000 UNITS 25 MCG TAB PO SCH (09:14)
--- NOTE | 2023-02-03 10:52 | Psychiatric Progress Note ---
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 Diagnostically consistent with episode of bipolar depression in context of recent stressors including breakup and move. She is deemed in need of psychiatric hospitalization for diagnostic clarification, safety and stabilization, medication management and development of further coping skills. 02/03/2023: Pt reports that she's feeling significantly better since admission. She thinks her "medication is doing what it's supposed to" and is not interested in any further adjustment. Looks forward to family meeting tomorrow Most recent 25-OH vitamin D level on 08/19/2022 was 20.3 ng/mL, suggesting replacement dose of 2,000 IU/day might be more appropriate. If a followup level was done following initial loading dose and replacement at current 1,000 IU/day dose has been done, the record of that is not available here. 02/02/2023: Ongoing depression but with slow improvement, she remains nervous about being out of the hospital but is starting to feel better about this idea, Wants to aim for family meeting on Sunday, prefers to stay at current effexor dose for now. (1) Bipolar disorder, current episode depressed, severe, with psychotic features: (2) ADHD (attention deficit hyperactivity disorder), inattentive type: (3) Vitamin D deficiency: (4) Acute UTI: Plan 02/03/2023: * continue aripiprazole 20 mg QHS * continue lamotrigine 150 mg daily * continue venlafaxine XR 112.5 mg daily * continue propranolol 10 mg daily PRN panic - with caution due to baseline SBP < 100 mmHg * continue cholecalciferol 1,000 IU daily * 25-OH vitamin D level to confirm adequacy of replacment * anticipate discharge likely tomorrow 02/02/2023: Continue current medications and tx plan. needs family meeting 02/01/2023: Continue current medications and tx plan. 01/31/2023: Effexor XR 112.5mg qd, continue other medications and tx plan. Propranolol 10mg daily prn for akathisia/anxiety. 01/30/2023: Increase Effexor XR to 112.5mg starting tomorrow morning. 01/29/2023: Increase to Effexor XR 75mg qd 01/28/2023: Started Effexor XR 37.5mg daily, will increase to 75mg qd tomorrow 01/27/2023: The patient was admitted to the [facility] ([facility]) on q15 min checks (behavioral with suicide precautions) for safety. The patient will participate in group, recreational, and milieu therapies and will be offered additional individual and family sessions as clinically appropriate. -continue with Lamictal and abilify; lamictal dose could be titrated over time but felt that an antidepressant would be most helpful at this point given severity of depression -escitalopram or venlafaxine -Fasting lipid panel, glucose and HbA1c Inventory Assets Strengths: supportive relationships, willing to get treatment Needs: safety and stabilization, medication adjustment, additional coping skills, increased outpatient services Suicide Risk Level Suicide Risk Level: Moderate (q15 min suicide checks) (severe depression with SI with plan prior to admission but feels safe in the hospital, able to safety contract and agrees to let nursing/staff know should they develop plan, intent or feel unable to remain safe.) Suicide Risk Level Comments: Risk Factors Assessment : Yes Do You Have Access To A Gun?: No Mental Health Diagnoses: Yes Previous Attempt: Yes Family History of Suicide: No Previous Psychiatric Hospitalization: Yes Protective Factors Assessment Responsible for Young Children: Yes Employed: Yes ([employer] Supportive Family: Yes Good Rapport with Provider: Yes Interval History Identifying Information MARIANGEL ORTIZ is a 32-year-old F who currently lives in [place] with her parents and her children half the time, has a history of BPAD and possible ADHD, and was admitted on 01/26/23 20:18 on a 201 voluntary commitment for SI with plan. Chief Complaint "I think I'm a lot better". Review of Systems Sleep Information Total Hours of Sleep: 6.5 Meal Information Percent Meal Consumed - Breakfast: 100 Percent Meal Consumed - Lunch: 100 Percent Meal Consumed - Dinner: 100 Subjective Subjective Patient was seen & assessed and interval progress reviewed in a multidisciplinary team meeting with nursing and social work. For details, see the "Impression" section. Physical Exam Psychiatric Orientation: alert and oriented x 3 Apperance: appropriately dressed and appropriately groomed Eye Contact: good eye contact Motor Behavior: no abnormal motor movements Speech: normal rate/rhythm/volume of speech Affect: + constricted affect Mood: + anxious mood and + dysphoric mood Thought Process: goal directed thought process Thought Content: reality based without delusions and + hopelessness Suicidal Thoughts: denies suicidal plan and denies suicidal intent; + reports suicidal thoughts (intermittent) Homicidal Thoughts: denies homicidal thoughts Hallucinations: no auditory hallucinations and no visual hallucinations Cognition: recent memory grossly intact, remote memory grossly intact, attention grossly intact and language grossly intact Estimated Intelligence: consistent with education level Insight: + fair insight Judgment: + fair judgement Vital Signs (Past 24 Hours) Last Vital Signs Temp 36.9 C 02/03/23 06:40 Pulse 93 H 02/03/23 06:40 Resp 16 02/03/23 06:40 BP 94/64 L 02/03/23 06:40 Pulse Ox 99 01/31/23 06:00 O2 Del Method Room Air 01/31/23 06:00 Results & Data ([facility]) Current Inpatient Medications Current Inpatient Medications: Current Inpatient Medications Acetaminophen (Acetaminophen 325 Mg Tab) 650 mg PO Q4H PRN PRN Reason: Headache or Minor Fever Stop: 02/25/23 20:17 Last Admin: 02/01/23 21:23 Dose: 650 mg Al Hydrox/Mg Hydrox/Simethicone (Aluminum/Magnesium Susp 30 Ml Udc) 30 ml PO Q4H PRN PRN Reason: GI Upset Stop: 02/25/23 20:17 Aripiprazole (Aripiprazole 10 Mg Tab) 20 mg PO HS DERRICK Stop: 02/25/23 21:59 Last Admin: 02/02/23 21:28 Dose: 20 mg Bismuth Subsalicylate (Bismuth Subsalicylate Liqd 236 Ml) 15 ml PO PRN PRN PRN Reason: Loose Stool Stop: 02/25/23 20:17 Hydroxyzine HCl (Hydroxyzine Hcl 10 Mg Tab) 10 mg PO Q4H PRN PRN Reason: Anxiety Stop: 02/25/23 20:17 Hydroxyzine HCl (Hydroxyzine Hcl 25 Mg Tab) 25 mg PO HSZ PRN PRN Reason: Insomnia Stop: 02/25/23 20:17 Last Admin: 02/02/23 21:27 Dose: 25 mg Lamotrigine (Lamotrigine 100 Mg Tab) 150 mg PO QAM DERRICK Stop: 02/26/23 10:59 Last Admin: 02/03/23 09:13 Dose: 150 mg Magnesium Hydroxide (Magnesium Hydroxide Susp 30 Ml Udc) 30 ml PO DAILY PRN PRN Reason: Constipation Stop: 02/25/23 20:17 Ondansetron HCl (Ondansetron 4 Mg Od Tab) 4 mg PO Q8H PRN PRN Reason: nausea Stop: 02/28/23 13:14 Last Admin: 01/29/23 13:20 Dose: 4 mg Pantoprazole Sodium (Pantoprazole 40 Mg Tab) 40 mg PO DAILY DERRICK Stop: 02/26/23 10:59 Last Admin: 02/03/23 09:13 Dose: 40 mg Propranolol HCl (Propranolol Hcl 10 Mg Tab) 10 mg PO DAILY PRN PRN Reason: akathisia/panic attack Stop: 03/03/23 08:59 Last Admin: 02/02/23 13:49 Dose: 10 mg Sodium Chloride (Sodium Chloride 0.65% Na Soln 45 Ml ([place])) 1 - 2 sprays NA PRN PRN PRN Reason: Nasal Dryness/Congestion Stop: 02/25/23 20:17 Venlafaxine HCl (Venlafaxine Hcl Xr 37.5 Mg Capxr) 112.5 mg PO QAM DERRICK Stop: 03/02/23 08:59 Last Admin: 02/03/23 09:13 Dose: 112.5 mg Vitamin D (Cholecalciferol 1,000 Units 25 Mcg Tab) 1,000 units PO QAM DERRICK Stop: 02/26/23 11:29 Last Admin: 02/03/23 09:14 Dose: 1,000 units Mental Health & Subst Abuse Tx Psychiatrist Name of Psychiatrist: Ramu Carver Psychiatrist's Date Of Appointment With Psychiatric Provider: 02/09/23 Time of Appointment with Psychiatrist: 3:15 PM Psychiatric Appointment Comment: [address] [place] [address] Therapist Name of Therapist: Elvis Valle Therapist's (cell) Date of Therapist Appointment: 02/05/23 Time of Therapist Appointment: 5:00 PM Therapy Appointment Comment: [id number] [facility] [id number], [place] [address] Bag Grader Name of Bag Grader: Denies Post Discharge Appointments Primary Care Physician Name Of Family Doctor/PCP: Dr Loera Primary Care Provider Appointment Comment: Please follow up as needed. Contact Information Discharge Discharge Address: [address] [place] [address]
[2023-02-03] MEDS: ARIPiprazole 10 MG TAB PO SCH (21:45)
[2023-02-03] MEDS: hydrOXYzine HCl 25 MG TAB PO PRN (21:47)
[2023-02-04] MEDS: VENLAFAXINE HCL XR 37.5 MG CAPXR PO SCH (09:24)
[2023-02-04] MEDS: lamoTRIgine 100 MG TAB PO SCH (09:24)
[2023-02-04] MEDS: CHOLECALCIFEROL 1,000 UNITS 25 MCG TAB PO SCH (09:24)
[2023-02-04] MEDS: PANTOprazole 40 MG TAB PO SCH (09:24)
--- NOTE | 2023-02-04 14:37 | Discharge Summary ---
Date of Service February 04, 2023 History of Present Illness She presents for psychiatric admission for worsening depression and SI with plan of crashing her car in the context of multiple psychosocial stressors including recent breakup on and then moved in with her parents. Has been very "weepy" in the mornings, anhedonia, hopeless, low motivation, low energy, sleep varies, decreased appetite (maybe lost about 5 lbs) over the last two weeks. SI comes and goes but since has intensified and started to think about crashing her car. Has also been anxious which has gotten worse as depression has worsened. Two panic attacks in the last two weeks. Endorses "feeling disoriented in a way" which she describes as some difficulty with recalling information and at times questioning if dreams are real or not. Denies any auditory or visual hallucinations except on felt like something or someone (like a figure) was in her room on awakening but then was able to reality-test by looking around the room. No depersonalization. She is currently prescribed psychiatric medications of lamictal 150mg qd (no side effects, seems to help) and abilify 20mg HS (maybe since September or October, sometimes wonders if she has a tremor versus from caffeine, seemed to help after dose increases but then mood gets depressed again). Has tried propranolol prn a few times for panic attacks but seems to impact her blood pressure. No recent episodes of triston. Physical Exam Psychiatric Orientation: alert, oriented to person, oriented to place, oriented to time and cooperative Apperance: appropriately dressed and appropriately groomed Eye Contact: good eye contact Motor Behavior: no abnormal motor movements Speech: normal rate/rhythm/volume of speech Affect: + constricted affect Mood: + anxious mood Thought Process: goal directed thought process Thought Content: reality based without delusions Suicidal Thoughts: denies suicidal plan and denies suicidal intent; + reports suicidal thoughts (chronic, intermittent) Homicidal Thoughts: denies homicidal thoughts Hallucinations: no auditory hallucinations and no visual hallucinations Cognition: recent memory grossly intact, remote memory grossly intact, attention grossly intact and language grossly intact Estimated Intelligence: consistent with education level Insight: + fair insight Judgment: + fair judgement Vital Signs (Past 24 Hours) Last Vital Signs Temp 36.8 C 02/04/23 14:33 Pulse 86 02/04/23 14:33 Resp 16 02/04/23 14:33 BP 127/89 02/04/23 14:33 Pulse Ox 99 02/04/23 14:33 O2 Del Method Room Air 01/31/23 06:00 See admission H&P and DOD assessment. Principal Diagnosis Bipolar I Disorder, Depressed, Severe, with Psychotic Features Psychiatric Data See daily stay summary. In short, safety was maintained and the patient was cooperative with care. Medication changes included initiation of venlafaxine XR which was titrated to 150 mg/day by the day of discharge and they tolerated this well. A family session was held and safety plan was completed prior to discharge. 02/04/2023: 25-OH vitamin D level was established as entirely adequate (56.5 ng/mL) at current replacement dose of 1,000 IU/day. Agreed to increase of venlafaxine XR to 150 mg/day since that was the plan to which she'd initially agreed with Dr. Clinton (and which I support). 02/03/2023: Pt reports that she's feeling significantly better since admission. She thinks her "medication is doing what it's supposed to" and is not interested in any further adjustment. Looks forward to family meeting tomorrow Most recent 25-OH vitamin D level on 08/19/2022 was 20.3 ng/mL, suggesting replacement dose of 2,000 IU/day might be more appropriate. If a followup level was done following initial loading dose and replacement at current 1,000 IU/day dose has been done, the record of that is not available here. 02/02/2023: Ongoing depression but with slow improvement, she remains nervous about being out of the hospital but is starting to feel better about this idea, Wants to aim for family meeting on Sunday, prefers to stay at current effexor dose for now. 02/01/2023: Ongoing depression, SI lessening for first day. Headache today but otherwise tolerating Effexor XR at higher dose. 01/31/2023: Ongoing depression with SI but intensity and frequency of SI starting to reduce a bit, still present this AM. Tolerating higher dose of Effexor XR today. Possible akathisia, though anxiety seems most likely, related to abilify so she would like to try propranolol prn if these symptoms re-occur. Reviewed risk factors/side effects with propranolol including syncope, dizziness, falls, need to move slowly from one position to another, that medication cannot be given if her BP is too low. She understands and consents to propranolol as option for prn. 01/30/2023: Ongoing severe depression with SI but less tearfulness today and SI is reducing a bit in frequency though she's not sure what to attribute this slight improvement to. No further GI side effects today, she is agreeable to ongoing titration of Effexor XR. 01/29/2023: Ongoing severe depression with SI, tearfulness and grief. Reviewed normal HbA1c results. Some stomach pain, suspect from higher dose of Effexor XR, she is comfortable with continuing with this for now and addressing side effects symptomatically given likelihood this will improve over time. 01/28/2023: Ongoing severe depression with SI. Reviewed fasting labwork, lipid panel and glucose within normal limits. HbA1c pending. Consents to increasing Effexor XR for ongoing titration. Day of Discharge Assessment Today the patient voices readiness for discharge. They note improvement in mood and deny thoughts to harm self or others. Thoughts remain organized and they are improved from admission. There is no evidence of psychosis. They agree to take mediations as prescribed and keep follow-up appointments. They are stable for discharge to outpatient level of care. Transition of Care Transition Of Care Record: was reviewed with the patient Advance Directives Advance Directives Information Provided: Yes Advance Directives: No Mental Health Advance Directive: No Advance Directives on File: No Living Will: No Power of Manufacturing Applications Engineer: No Advance Directives Reason:: Declines as Mental Health Visit. Suicide Risk Level Suicide Risk Level Comments: Risk Factors Assessment : Yes Do You Have Access To A Gun?: No Mental Health Diagnoses: Yes Previous Attempt: Yes Family History of Suicide: No Previous Psychiatric Hospitalization: Yes Protective Factors Assessment Responsible for Young Children: Yes Employed: Yes ([employer] ([employer] Supportive Family: Yes Good Rapport with Provider: Yes Tobacco Cessation at Discharge Tobacco Cessation Medication Prescribed at Discharge: Not Applicable/Non-Smoker Total Time Total Time Spent: Greater Than 30 Minutes Total Time Includes: Examination of the patient, Discharge Planning, Medication Reconciliation and As well as (documentation) Discharge Data Lab Results 01/26/23 01/26/23 01/26/23 18:00 18:00 18:15 WBC 9.87 RBC 4.65 Hgb 14.0 Hct 40.7 MCV 87.5 MCH 30.1 MCHC 34.4 RDW Std Deviation 39.7 RDW Coeff of Bogdan 12.5 Plt Count 282 MPV 9.8 Immature Gran % (Auto) 0.3 Neut % (Auto) 66.2 Lymph % (Auto) 25.6 [place] % (Auto) 5.7 Eos % (Auto) 1.9 Baso % (Auto) 0.3 Neut # (Auto) 6.53 H Lymph # (Auto) 2.53 [place] # (Auto) 0.56 Eos # (Auto) 0.19 Baso # (Auto) 0.03 Immature Gran # (Auto) 0.03 Sodium Potassium Chloride Carbon Dioxide Anion Gap BUN Creatinine Est Cr Clr Drug Dosing Est GFR ( Amer) Est GFR (Non-Af Amer) BUN/Creatinine Ratio Glucose Fasting Glucose Estimat Average Glucose Hemoglobin A1c Calcium Total Bilirubin AST ALT Alkaline Phosphatase Total Protein Albumin Globulin Albumin/Globulin Ratio Triglycerides Cholesterol LDL Cholesterol, Calc VLDL Cholesterol, Calc HDL Cholesterol Cholesterol/HDL Ratio 25-OH Vitamin D Total TSH HCG, Qual Urine Color Yellow Urine Appearance Turbid A Urine pH 5.0 Ur Specific [place] 1.021 Urine Protein Negative Urine Glucose (UA) Negative Urine Ketones 1+ H Urine Blood Trace H Urine Nitrite Negative Urine Bilirubin Negative Urine Urobilinogen Negative Ur Leukocyte Esterase 1+ H Urine WBC (Auto) >30 H Urine RBC (Auto) 0-4 U Hyaline Cast (Auto) 0 U Epithel Cells (Auto) >30 H Urine Bacteria (Auto) 3+ H Salicylates Urine Opiates Screen Neg Ur Methadone, Qual Neg Acetaminophen Urine Barbiturates Neg Ur Phencyclidine (PCP) Neg U Amphetamin/Meth Scrn Neg MDMA (Ecstasy) Screen Neg U Benzodiazepines Scrn Neg Ur Cocaine Metabolite Neg U Marijuana (THC) Screen Neg Ethyl Alcohol mg/dL SARS-CoV-2, RNA, NAAT 01/26/23 01/26/23 01/26/23 18:15 18:15 18:15 WBC RBC Hgb Hct MCV MCH MCHC RDW Std Deviation RDW Coeff of Bogdan Plt Count MPV Immature Gran % (Auto) Neut % (Auto) Lymph % (Auto) [place] % (Auto) Eos % (Auto) Baso % (Auto) Neut # (Auto) Lymph # (Auto) [place] # (Auto) Eos # (Auto) Baso # (Auto) Immature Gran # (Auto) Sodium 138 Potassium 3.5 Chloride 104 Carbon Dioxide 28 Anion Gap 6 BUN 9 Creatinine 0.73 Est Cr Clr Drug Dosing Not Reportable Est GFR ( Amer) 127.2 Est GFR (Non-Af Amer) 109.7 BUN/Creatinine Ratio 12.3 Glucose 133 H Fasting Glucose Estimat Average Glucose Hemoglobin A1c Calcium 9.8 Total Bilirubin 1.7 H AST 15 ALT 11 Alkaline Phosphatase 55 Total Protein 7.7 Albumin 4.9 Globulin 2.8 Albumin/Globulin Ratio 1.8 Triglycerides Cholesterol LDL Cholesterol, Calc VLDL Cholesterol, Calc HDL Cholesterol Cholesterol/HDL Ratio 25-OH Vitamin D Total TSH 1.266 HCG, Qual Urine Color Urine Appearance Urine pH Ur Specific [place] Urine Protein Urine Glucose (UA) Urine Ketones Urine Blood Urine Nitrite Urine Bilirubin Urine Urobilinogen Ur Leukocyte Esterase Urine WBC (Auto) Urine RBC (Auto) U Hyaline Cast (Auto) U Epithel Cells (Auto) Urine Bacteria (Auto) Salicylates < 3.0 L Urine Opiates Screen Ur Methadone, Qual Acetaminophen < 3 L Urine Barbiturates Ur Phencyclidine (PCP) U Amphetamin/Meth Scrn MDMA (Ecstasy) Screen U Benzodiazepines Scrn Ur Cocaine Metabolite U Marijuana (THC) Screen Ethyl Alcohol mg/dL SARS-CoV-2, RNA, NAAT 01/26/23 01/26/23 01/26/23 18:15 18:15 18:18 WBC RBC Hgb Hct MCV MCH MCHC RDW Std Deviation RDW Coeff of Bogdan Plt Count MPV Immature Gran % (Auto) Neut % (Auto) Lymph % (Auto) [place] % (Auto) Eos % (Auto) Baso % (Auto) Neut # (Auto) Lymph # (Auto) [place] # (Auto) Eos # (Auto) Baso # (Auto) Immature Gran # (Auto) Sodium Potassium Chloride Carbon Dioxide Anion Gap BUN Creatinine Est Cr Clr Drug Dosing Est GFR ( Amer) Est GFR (Non-Af Amer) BUN/Creatinine Ratio Glucose Fasting Glucose Estimat Average Glucose Hemoglobin A1c Calcium Total Bilirubin AST ALT Alkaline Phosphatase Total Protein Albumin Globulin Albumin/Globulin Ratio Triglycerides Cholesterol LDL Cholesterol, Calc VLDL Cholesterol, Calc HDL Cholesterol Cholesterol/HDL Ratio 25-OH Vitamin D Total TSH HCG, Qual Negative Urine Color Urine Appearance Urine pH Ur Specific [place] Urine Protein Urine Glucose (UA) Urine Ketones Urine Blood Urine Nitrite Urine Bilirubin Urine Urobilinogen Ur Leukocyte Esterase Urine WBC (Auto) Urine RBC (Auto) U Hyaline Cast (Auto) U Epithel Cells (Auto) Urine Bacteria (Auto) Salicylates Urine Opiates Screen Ur Methadone, Qual Acetaminophen Urine Barbiturates Ur Phencyclidine (PCP) U Amphetamin/Meth Scrn MDMA (Ecstasy) Screen U Benzodiazepines Scrn Ur Cocaine Metabolite U Marijuana (THC) Screen Ethyl Alcohol mg/dL < 10.0 SARS-CoV-2, RNA, NAAT NEGATIVE 01/28/23 01/28/23 02/03/23 07:29 07:29 19:39 WBC RBC Hgb Hct MCV MCH MCHC RDW Std Deviation RDW Coeff of Bogdan Plt Count MPV Immature Gran % (Auto) Neut % (Auto) Lymph % (Auto) [place] % (Auto) Eos % (Auto) Baso % (Auto) Neut # (Auto) Lymph # (Auto) [place] # (Auto) Eos # (Auto) Baso # (Auto) Immature Gran # (Auto) Sodium Potassium Chloride Carbon Dioxide Anion Gap BUN Creatinine Est Cr Clr Drug Dosing Est GFR ( Amer) Est GFR (Non-Af Amer) BUN/Creatinine Ratio Glucose Fasting Glucose 87 Estimat Average Glucose 100 Hemoglobin A1c 5.1 Calcium Total Bilirubin AST ALT Alkaline Phosphatase Total Protein Albumin Globulin Albumin/Globulin Ratio Triglycerides 83 Cholesterol 185 LDL Cholesterol, Calc 129 VLDL Cholesterol, Calc 17 HDL Cholesterol 39 Cholesterol/HDL Ratio 4.7 25-OH Vitamin D Total 56.5 TSH HCG, Qual Urine Color Urine Appearance Urine pH Ur Specific [place] Urine Protein Urine Glucose (UA) Urine Ketones Urine Blood Urine Nitrite Urine Bilirubin Urine Urobilinogen Ur Leukocyte Esterase Urine WBC (Auto) Urine RBC (Auto) U Hyaline Cast (Auto) U Epithel Cells (Auto) Urine Bacteria (Auto) Salicylates Urine Opiates Screen Ur Methadone, Qual Acetaminophen Urine Barbiturates Ur Phencyclidine (PCP) U Amphetamin/Meth Scrn MDMA (Ecstasy) Screen U Benzodiazepines Scrn Ur Cocaine Metabolite U Marijuana (THC) Screen Ethyl Alcohol mg/dL SARS-CoV-2, RNA, NAAT Hospital Course (1) Bipolar disorder, current episode depressed, severe, with psychotic features: (2) ADHD (attention deficit hyperactivity disorder), inattentive type: (3) Vitamin D deficiency: (4) Acute UTI: Plan 02/03/2023: * continue aripiprazole 20 mg QHS * continue lamotrigine 150 mg daily * continue venlafaxine XR 112.5 mg daily * continue propranolol 10 mg daily PRN panic - with caution due to baseline SBP < 100 mmHg * continue cholecalciferol 1,000 IU daily * 25-OH vitamin D level to confirm adequacy of replacment * anticipate discharge likely tomorrow 02/02/2023: Continue current medications and tx plan. needs family meeting 02/01/2023: Continue current medications and tx plan. 01/31/2023: Effexor XR 112.5mg qd, continue other medications and tx plan. Propranolol 10mg daily prn for akathisia/anxiety. 01/30/2023: Increase Effexor XR to 112.5mg starting tomorrow morning. 01/29/2023: Increase to Effexor XR 75mg qd 01/28/2023: Started Effexor XR 37.5mg daily, will increase to 75mg qd tomorrow 01/27/2023: The patient was admitted to the [facility] ([facility] mental health unit) on q15 min checks (behavioral with suicide precautions) for safety. The patient will participate in group, recreational, and milieu therapies and will be offered additional individual and family sessions as clinically appropriate. -continue with Lamictal and abilify; lamictal dose could be titrated over time but felt that an antidepressant would be most helpful at this point given severity of depression -escitalopram or venlafaxine -Fasting lipid panel, glucose and HbA1c Mental Health & Subst Abuse Tx Psychiatrist Name of Psychiatrist: Ramu Carver Psychiatrist's Date Of Appointment With Psychiatric Provider: 02/09/23 Time of Appointment with Psychiatrist: 3:15 PM Psychiatric Appointment Comment: [address] [place] [address] Psychiatrist Release of Information: Obtained, Reviewed and Signed Therapist Name of Therapist: Elvis Shelton - [facility] (cell) Date of Therapist Appointment: 02/05/23 Time of Therapist Appointment: 5:00 PM Therapy Appointment Comment: [phone], [place] [address] Therapist Release of Information: Obtained, Reviewed and Signed Outdoor Fitness Trainer Name of Outdoor Fitness Trainer: Denies Post Discharge Appointments Primary Care Physician Name Of Family Doctor/PCP: Dr Loera Primary Care Provider Appointment Comment: Please follow up as needed. Smoking Cessation Counseling Tobacco Cessation Medication Prescribed at Discharge: Not Applicable/Non-Smoker Contact Information Discharge Discharge Address: [address] [place] [address] Discharge Plan Discharge Items Patient Disposition: Home - Self-Care Reason For Visit: UNSPECIFIED DEPRESSIVE DISORDER Discharge Diagnosis: Bipolar I Disorder, Depressed, Severe, with Psychotic Features Activity: Resume your previous activity Non-emergency contact: Primary Care Provider and Psychiatrist Call non-emergency contact if: you have any medication questions and your symptoms worsen Follow-up/Referrals: Bety Loera MD [Primary Care Provider] - Diet: Regular Addtl Attending Provider Instructions: SPECIAL CARE INSTRUCTIONS: 1. Follow through with your scheduled aftercare appointments. If unable to keep an appointment, please call to reschedule. 2. Take your medication only as prescribed. Medication should not be changed or stopped without the approval of your doctor. In the event of worsening symptoms or concerns about side effects, contact your doctor immediately. 3. Utilize new healthy coping skills, anger management skills, and stress management skills learned during your hospitalization. Journal feelings and process them with a support person. Identify stressors or situations that may result in relapse, deterioration or inappropriate behaviors and develop a plan to deal with those issues. 4. If your coping skills are ineffective and you are in crisis, contact your outpatient providers for direction. If unable to reach your providers, please call the [facility] CRISIS LINE AT , go to the [facility] walk-in center at [address], [address], [place], or go to the closest Emergency Room. 5. Avoid alcohol and un-prescribed drugs. 6. You have been provided with the Mental Health Advance Directives Pamphlet for your review. 7. Your condition is stable for discharge to outpatient level of care, but recovery is an ongoing process. Ifthoughts to harm yourself or others return, follow the safety plan developed during your stay. Planning for a safe return home includes securing weapons. Our treatment team recommends weaponsbe removed from the home until your outpatient provider reassesses your progress. In rare cases where the items themselvescannot be removed, guns and ammunitionshould be secured separatelyand keys stored by a reliable personoutside of the home. If you were admitted on an involuntary commitment, the police or other legal authorities may be involved in this process. AFTERCARE APPOINTMENTS: * Please call your insurance company prior to your scheduled appointment to confirm your aftercare providers are covered. Take your insurance information to your appointments. WHO TO CALL AND WHEN: Medical Emergencies: For questions or emergencies related to your hospital stay, please contact the Inpatient Behavioral Health Unit at [phone]. A nurse clinician is on-call 01/01 for the Behavioral Health Unit for emergencies At any time you feel your situation is an emergency, you may also call 911 immediately. Pending Studies at Discharge: No Stand-Alone Forms: [facility] Medications and DC Order Prescriptions: New cholecalciferol (vitamin D3) 25 mcg (1,000 unit) capsule 1,000 unit PO QAM 30 Days Qty: 30 0RF venlafaxine 150 mg Capsule,Extended Release 24hr 150 mg PO QAM 30 Days Qty: 30 0RF Continued pantoprazole 40 mg tablet,delayed release (DR/EC) 40 mg PO DAILY Qty: 90 1RF Rx Instructions: take 1 tablet by mouth aripiprazole [Abilify] 10 mg tablet 20 mg PO HS ondansetron 4 mg tablet,disintegrating 4 mg PO Q8H PRN (Reason: NAUSEA/VOMITING) hydroxyzine HCl 10 mg Tablet 10 mg PO DAILY PRN (Reason: Anxiety) propranolol 10 mg Tablet 10 mg PO BID PRN (Reason: Anxiety) lamotrigine 150 mg tablet 150 mg PO DAILY Discharge Orders: Discharge Order (Routine); Ordered 02/04/23 Ordered By: Markus Martinez Admission Data Admit Date/Time: 01/26/23 20:18 Attending Provider: Ketty Clinton Admit Provider: Ketty Clinton Primary Care Provider: Bety Loera Other Interventions: Discharge Summary Assessment (RN) Last Done: 02/04/23 14:33 PSY Interdisciplinary Discharge Planning Last Done: 02/04/23 14:27 Coding Level of Care Code 24240 D/C day mgmt > 30 min Diagnoses Bipolar disorder, current episode depressed, severe, with psychotic features F31.5 ADHD (attention deficit hyperactivity disorder), inattentive type F90.0 Vitamin D deficiency E55.9 Acute UTI N39.0 Time Spent (min) 31
[2023-02-05] MEDS ORDERED: VENLAFAXINE HCL XR 150 MG CAPXR PO SCH (09:00)
== END 2023-02-04 14:53 | disposition home or self-care (01) | DRG 885 ==
LOC: ED 17:43 → 3S 20:18